=== PATIENT | male | born 1950 | race Caucasian/White ===

== ENCOUNTER 2020-08-18 08:08 | Emergency (ER) | payer MEDICARE, BC, OTHER ==
[~2020-08-18] VITALS: Ht 170.2 cm; Wt 116.3 kg
[2020-08-18 08:10] VITALS: BP 151/80
[2020-08-18 08:36] LABS: BASO # 0.1 x10^3/uL (0.0-0.2); BASO % 1 % (0-3); EOS # 0.2 x10^3/uL (0.0-0.7); EOS % 3 % (0-3); HEMATOCRIT 41.2 % (39.0-53.0); HEMOGLOBIN 13.5 g/dL (13.0-17.5); LYMPH # 1.4 x10^3/uL (1.0-4.8); LYMPH % 20 % (24-48); MEAN CORPUSCULAR HEMOGLOBIN 28 pg (25-35); MEAN CORPUSCULAR HGB CONC 33 g/dL (31-37); MEAN CORPUSCULAR VOLUME 87 fL (79-100); MONO # 0.5 x10^3/uL (0.0-1.1); MONO % 8 % (0-9); NEUT # 4.9 x10^3uL (1.8-7.7); NEUT % 68 % (31-73); PLATELET COUNT 108 x10^3/uL (140-400); RED BLOOD COUNT 4.74 x10^6/uL (4.30-5.70); RED CELL DISTRIBUTION WIDTH 15.8 % (11.5-14.5); WHITE BLOOD COUNT 7.1 x10^3/uL (4.0-11.0)
[2020-08-18 08:44] LABS: CALCIUM 9.4 mg/dL (8.5-10.1); CREATININE 1.1 mg/dL (0.7-1.3)
[2020-08-18 08:50] LABS: ALBUMIN 3.6 g/dL (3.4-5.0); ALBUMIN/GLOBULIN RATIO 0.8 (1.0-1.7); TOTAL BILIRUBIN 0.3 mg/dL (0.2-1.0); TOTAL PROTEIN 8.4 g/dL (6.4-8.2)
[2020-08-18 08:52] LABS: BACTERIA,URINE 0 /HPF (0-FEW); BILIRUBIN,URINE NEG (NEG); CLARITY,URINE CLEAR; COLOR,URINE YELLOW; GLUCOSE,URINE 500 mg/dL (NEG); NITRITE,URINE NEG (NEG); RBC,URINE OCC /HPF (0-2); SQUAMOUS EPITHELIAL CELL,UR OCC /LPF; UROBILINOGEN,URINE 0.2 mg/dL (0.2 mg/dL); WBC,URINE OCC /HPF (0-4)
--- NOTE | 2020-08-18 09:07 | PHYS DOC ---
Past History Past Medical History: Diabetes, Heart Disease, Other Additional Past Medical Histor: resp failure, encephalopathy,heart failure, mild cognitive impairment Past Surgical History: Other Additional Past Surgical Histo: amputation of great toe Alcohol Use: None Adult General Chief Complaint Chief Complaint: PSYCH EVALUATION HPI HPI Patient is 70-year-old male with past medical history of dementia who presents the emergency room with behavioral issues. It is unclear at this time what kind of issues he has been having. Patient has no complaints. He is a poor historian. He is very compliant here in the emergency room. Review of Systems Review of Systems General: Denies fever, chills, sweats, fatigue Eyes: Denies drainage, blurred vision, eye redness HENT: Denies rhinorrhea, sore throat, earache Respiratory: Denies cough, shortness of breath, wheezing Cardiac: Denies edema, palpitations, chest pain GI: Denies abdominal pain, Nausea, vomiting MSK: Denies back pain, neck pain Skin: Denies rash, jaundice Neuro: Denies headache, dizziness Psychiatric: Denies SI/HI Physical Exam Physical Exam General: Awake, alert, NAD. Well Nourished, well hydrated. Cooperative HEENT: Atraumatic, EOMI, PERRL, airway patent, moist oral mucosa Neck: Supple, trachea midline Respiratory: CTA bilaterally, normal effort, no wheezing/crackles CV: RRR, no murmur, cap refill <2, bilateral 1+ pitting edema GI: Soft, nondistended, nontender, no masses MSK: No obvious deformities Skin: Warm, dry, intact Neuro: A&O x2, speech NL, sensory and motor grossly intact, no focal deficits Psych: Normal affect, normal mood, not suicidal or homicidal Current Patient Data Vital Signs Vital Signs Date Time Temp Pulse Resp B/P (MAP) Pulse Ox O2 Delivery O2 Flow Rate FiO2 08/18/20 08:10 97.9 57 16 151/80 (103) 98 Room Air Lab Results Laboratory Tests Test 08/18/20 08:18 08/18/20 08:24 White Blood Count 7.1 x10^3/uL (4.0-11.0) Red Blood Count 4.74 x10^6/uL (4.30-5.70) Hemoglobin 13.5 g/dL (13.0-17.5) Hematocrit 41.2 % (39.0-53.0) Mean Corpuscular Volume 87 fL (79-100) Mean Corpuscular Hemoglobin 28 pg (25-35) Mean Corpuscular Hemoglobin Concent 33 g/dL (31-37) Red Cell Distribution Width 15.8 % (11.5-14.5) H Platelet Count 108 x10^3/uL (140-400) L Neutrophils (%) (Auto) 68 % (31-73) Lymphocytes (%) (Auto) 20 % (24-48) L Monocytes (%) (Auto) 8 % (0-9) Eosinophils (%) (Auto) 3 % (0-3) Basophils (%) (Auto) 1 % (0-3) Neutrophils # (Auto) 4.9 x10^3uL (1.8-7.7) Lymphocytes # (Auto) 1.4 x10^3/uL (1.0-4.8) Monocytes # (Auto) 0.5 x10^3/uL (0.0-1.1) Eosinophils # (Auto) 0.2 x10^3/uL (0.0-0.7) Basophils # (Auto) 0.1 x10^3/uL (0.0-0.2) Sodium Level 137 mmol/L (136-145) Potassium Level 4.0 mmol/L (3.5-5.1) Chloride Level 100 mmol/L (98-107) Carbon Dioxide Level 29 mmol/L (21-32) Anion Gap 8 (6-14) Blood Urea Nitrogen 14 mg/dL (8-26) Creatinine 1.1 mg/dL (0.7-1.3) Estimated GFR (Cockcroft-Gault) 66.0 BUN/Creatinine Ratio 13 (6-20) Glucose Level 312 mg/dL (70-99) H Calcium Level 9.4 mg/dL (8.5-10.1) Total Bilirubin 0.3 mg/dL (0.2-1.0) Aspartate Amino Transferase (AST) 14 U/L (15-37) L Alanine Aminotransferase (ALT) 17 U/L (16-63) Alkaline Phosphatase 101 U/L (46-116) Total Protein 8.4 g/dL (6.4-8.2) H Albumin 3.6 g/dL (3.4-5.0) Albumin/Globulin Ratio 0.8 (1.0-1.7) L Urine Collection Type Unknown Urine Color Yellow Urine Clarity Clear Urine pH 7.0 Urine Specific [place] 1.010 Urine Protein Neg (NEG-TRACE) Urine Glucose (UA) 500 mg/dL (NEG) Urine Ketones (Stick) Neg mg/dL (NEG) Urine Blood Neg (NEG) Urine Nitrite Neg (NEG) Urine Bilirubin Neg (NEG) Urine Urobilinogen Dipstick 0.2 mg/dL (0.2 mg/dL) Urine Leukocyte Esterase Neg (NEG) Urine RBC Occ /HPF (0-2) Urine WBC Occ /HPF (0-4) Urine Squamous Epithelial Cells Occ /LPF Urine Bacteria 0 /HPF (0-FEW) EKG EKG [] Radiology/Procedures Radiology/Procedures [] Course & Med Decision Making Course & Med Decision Making Pertinent Labs and Imaging studies reviewed. (See chart for details) Patient is a 70-year-old male who presents to the emergency room from a nursing facility for behavioral issues. Patient has not had any behavioral episodes while here in the emergency room. At this time he is medically stable. There is not an emergent need for a psychiatric evaluation. Patient will be discharged back to the nursing facility for proper placement patient's test results and vitals while in the ED were fully reviewed and discussed with the patient. Patient is stable and at this time does not need admission to the hospital. We have discussed strict return precautions and the importance of following up with their Primary Care Physician. Patient stated understanding and was given an opportunity to ask any questions. Patient is in agreement with plan. Dragon Disclaimer Dragon Disclaimer This electronic medical record was generated, in whole or in part, using a voice recognition dictation system. Departure Departure: Impression: Primary Impression: Dementia Disposition: HOME/RESIDENCE PRIOR TO ADM Condition: STABLE Referrals: PCP,UNKNOWN (PCP) Patient Instructions: Dementia ESTEBAN BLAIR MD Aug 18, 2020 09:07
== END 2020-08-18 11:48 | disposition home or self-care (01) ==
LOC: ER 08:08
DX: F03.90 Unspecified dementia, unspecified severity, without behavioral disturbance, psychotic disturbance, mood disturbance, and anxiety (principal); E11.9 Type 2 diabetes mellitus without complications; I50.9 Heart failure, unspecified
CPT/HCPCS: 36415; 80053; 81001; 85025; 99283

== ENCOUNTER 2020-08-21 10:12 | Inpatient (IN) | payer MEDICARE, BC, OTHER ==
[~2020-08-21] VITALS: Ht 180.3 cm; Wt 124.0 kg
[2020-08-21 10:41] VITALS: BP 191/98
[2020-08-21 11:05] LABS: BILIRUBIN,URINE NEG (NEG); CLARITY,URINE CLEAR; COLOR,URINE COLORLESS; GLUCOSE,URINE 100 mg/dL (NEG); NITRITE,URINE NEG (NEG); UROBILINOGEN,URINE 0.2 mg/dL (0.2 mg/dL)
[2020-08-21 11:06] LABS: BACTERIA,URINE 0 /HPF (0-FEW); RBC,URINE 0 /HPF (0-2); WBC,URINE 0 /HPF (0-4)
[2020-08-21] MEDS ORDERED: CARV6.25 PO (11:43)
[2020-08-21] MEDS ORDERED: FURO-68 PO (11:43)
[2020-08-21] MEDS ORDERED: LORA0.5T21 PO (11:43)
[2020-08-21] MEDS ORDERED: HALO5AMP2 IJ (11:43)
[2020-08-21] MEDS ORDERED: GABA-586 PO (11:43)
[2020-08-21] MEDS ORDERED: MAG355OR11 PO (11:43)
[2020-08-21] MEDS ORDERED: CYAN100031 PO (11:43)
[2020-08-21] MEDS ORDERED: INSU100I13 SQ (11:43)
[2020-08-21] MEDS ORDERED: ASPI-630 PO (11:43)
[2020-08-21] MEDS ORDERED: MUPI15CR8 TP (11:43)
[2020-08-21] MEDS ORDERED: PANT40TA3 PO (11:43)
[2020-08-21] MEDS ORDERED: PRAV40TA2 PO (11:43)
[2020-08-21] MEDS ORDERED: LOSA100T14 PO (11:43)
[2020-08-21] MEDS ORDERED: ACET325T9 PO (11:43)
[2020-08-21] MEDS ORDERED: INSU100I17 SQ (11:43)
[2020-08-21] MEDS ORDERED: ACETAMINOPHEN 325 MG TABLET PO PRN (12:00)
[2020-08-21] MEDS ORDERED: LORazepam 0.5 MG TABLET PO PRN (12:00)
--- NOTE | 2020-08-21 12:10 | HP ---
ADMIT DATE: 08/21/2020 HISTORY OF PRESENT ILLNESS: We are asked to admit this patient for COVID-19 screening prior to going to the [facility]. HISTORY OF PRESENT ILLNESS: The patient is a 70-year-old gentleman who hails from [facility] in [place]. Dr. Obrien had seen him there. He has gotten quite agitated. He is exit seeking, aggressive with staff, pushed a social services analyst out of the way agitated, delusional and restless. I wonder if there is some baseline developmental delay. In any event, he has multiple medical issues. He was sent here for further evaluation and COVID screening. PAST MEDICAL HISTORY: Significant for encephalopathy, type 2 diabetes, heart disease, obesity, cognitive impairment, dementia, hypertension, hyperlipidemia and profound peripheral edema. CURRENT MEDICATIONS: Reviewed. He takes insulin 3 shots of regular and a shot of Lantus at bedtime, pravastatin, Coreg, losartan 100 mg daily, aspirin, Tylenol, Neurontin, Haldol, lorazepam, Lasix 40 mg daily, magnesium hydroxide, vitamin B12, and Protonix. ALLERGIES: He has allergies to PENICILLIN, exact cause is unclear. SOCIAL HISTORY: Nonsmoker, nondrinker. FAMILY HISTORY: Unobtainable. REVIEW OF SYSTEMS: Significant for he drinks quite a bit of water, about a gallon a day, resulting in chronic pedal edema. He can barely put his shoes on. He has 4+ pitting edema. No fevers, chills, COVID exposure. All other systems reviewed and turned to be negative. He has an unfortunately very little insight into his condition. PHYSICAL EXAMINATION: GENERAL: When I saw him, this is a pleasant gentleman. INITIAL VITAL SIGNS: Showed a blood pressure of 191/98, pulse 95 and regular, temperature 98.4 degrees Fahrenheit. He was afebrile. Room air saturation 95%. HEENT: Head is without trauma. Pupils are reactive. Sclerae nonicteric. Oropharynx clear. NECK: Supple. LUNGS: Good breath sounds. CARDIOVASCULAR: Showed regular heart tones. No gallops. Peripheral pulses are palpable and full. ABDOMEN: Obese, protuberant. No organomegaly. Bowel sounds are normoactive. EXTREMITIES: Show 4+ pitting edema, extending all the way up to his thighs. The ankles are swollen. There is stasis dermatitis. NEUROLOGIC: Focally intact. Speech is fluent. No focal deficits. PERTINENT LABORATORY DATA: Urinalysis is unremarkable. CBC, chemistry panel and syphilis serology and coronavirus swab are pending at this time. ASSESSMENT: 1. A 70-year-old gentleman with dementia with aggressive behavior. 2. Borderline developmental delay. 3. Cardiomyopathy. 4. Type 2 diabetes. 5. Morbid obesity. 6. Significant pedal edema due to excess intake of fluids. PLAN: 1. Continue insulin regimen as ordered. 2. Continue blood pressure meds. 3. I would recommend increasing his Lasix to 80 mg twice a day. 4. Await results of serology. He can go to the Behavioral Unit when his COVID-19 tests are available. I would recommend daily weights and fluid restriction. Whether or not this is feasible, remains to be seen. DARLING WEINBERG MD DR: MITA/nadya JOB#: [id number] / [id number]
[2020-08-21] MEDS ORDERED: MAG HYDROX/AL HYDROX/SIMETH 30 ML ORAL.SUSP PO PRN (12:30)
[2020-08-21] MEDS ORDERED: MAGNESIUM HYDROXIDE 2,400 MG/30 ML ORAL.SUSP. PO PRN (13:30)
[2020-08-21] MEDS: INSULIN LISPRO 300 UNITS/3 ML VIAL. SQ SCH ×2 (13:30→17:00)
[2020-08-21] MEDS: GABAPENTIN 300 MG CAPSULE. PO SCH ×2 (13:42→19:55)
[2020-08-21] MEDS: FUROSEMIDE 40 MG TABLET PO SCH ×2 (13:42→19:55)
[2020-08-21] MEDS: LORazepam 0.5 MG TABLET PO SCH ×2 (13:42→19:54)
[2020-08-21 14:41] LABS: ALBUMIN 3.6 g/dL (3.4-5.0); ALBUMIN/GLOBULIN RATIO 0.8 (1.0-1.7); CALCIUM 9.7 mg/dL (8.5-10.1); CREATININE 1.2 mg/dL (0.7-1.3); DIRECT BILIRUBIN 0.1 mg/dL (0.0-0.2); GFR 59.7; MAGNESIUM 2.2 mg/dL (1.8-2.4); PHOSPHORUS 3.7 mg/dL (2.6-4.7); POTASSIUM 3.9 mmol/L (3.5-5.1); TOTAL BILIRUBIN 0.3 mg/dL (0.2-1.0); TOTAL PROTEIN 8.4 g/dL (6.4-8.2)
[2020-08-21 14:54] LABS: BASO # 0.1 x10^3/uL (0.0-0.2); BASO % 1 % (0-3); EOS # 0.2 x10^3/uL (0.0-0.7); EOS % 2 % (0-3); HEMATOCRIT 39.7 % (39.0-53.0); HEMOGLOBIN 13.1 g/dL (13.0-17.5); LYMPH # 1.5 x10^3/uL (1.0-4.8); LYMPH % 19 % (24-48); MEAN CORPUSCULAR HEMOGLOBIN 29 pg (25-35); MEAN CORPUSCULAR HGB CONC 33 g/dL (31-37); MEAN CORPUSCULAR VOLUME 87 fL (79-100); MONO # 0.3 x10^3/uL (0.0-1.1); MONO % 4 % (0-9); NEUT # 6.1 x10^3uL (1.8-7.7); NEUT % 74 % (31-73); PLATELET COUNT 120 x10^3/uL (140-400); RED BLOOD COUNT 4.58 x10^6/uL (4.30-5.70); RED CELL DISTRIBUTION WIDTH 15.2 % (11.5-14.5); WHITE BLOOD COUNT 8.2 x10^3/uL (4.0-11.0)
[2020-08-21] MEDS: CARVEDILOL 6.25 MG TABLET PO SCH (17:00)
[2020-08-21] MEDS: ATORVASTATIN CALCIUM 10 MG TABLET. PO SCH (19:55)
[2020-08-21] MEDS: INSULIN GLARGINE SYRINGE. SQ SCH (20:40)
[2020-08-21 21:49] VITALS: BP 153/65
--- NOTE | 2020-08-21 21:56 | PDOC ---
Exam Note: Mason Note: Please also refer to the separate dictated note~for this date of service dictated separately.~Patient seen individually. Discussed the patient with Nursing staff reviewed the chart.~Reviewed interim history and current functioning. Reviewed vital signs,~Labs/ Radiology~and current medications noted below. Continue current treatment with the changes noted in the dictated addendum note Assessment: Vital Signs/I&O: Vital Signs Date Time Temp Pulse Resp B/P (MAP) Pulse Ox O2 Delivery O2 Flow Rate FiO2 08/21/20 21:49 98.1 82 22 153/65 (94) 94 08/21/20 10:41 Room Air Labs: Laboratory Tests Test 08/21/20 10:45 08/21/20 13:57 08/21/20 17:16 08/21/20 18:53 Urine Collection Type Unknown Urine Color Colorless Urine Clarity Clear Urine pH 6.5 Urine Specific [place] 1.010 Urine Protein Neg (NEG-TRACE) Urine Glucose (UA) 100 mg/dL (NEG) Urine Ketones (Stick) Neg mg/dL (NEG) Urine Blood Neg (NEG) Urine Nitrite Neg (NEG) Urine Bilirubin Neg (NEG) Urine Urobilinogen Dipstick 0.2 mg/dL (0.2 mg/dL) Urine Leukocyte Esterase Neg (NEG) Urine RBC 0 /HPF (0-2) Urine WBC 0 /HPF (0-4) Urine Squamous Epithelial Cells None /LPF Urine Bacteria 0 /HPF (0-FEW) White Blood Count 8.2 x10^3/uL (4.0-11.0) Red Blood Count 4.58 x10^6/uL (4.30-5.70) Hemoglobin 13.1 g/dL (13.0-17.5) Hematocrit 39.7 % (39.0-53.0) Mean Corpuscular Volume 87 fL (79-100) Mean Corpuscular Hemoglobin 29 pg (25-35) Mean Corpuscular Hemoglobin Concent 33 g/dL (31-37) Red Cell Distribution Width 15.2 % (11.5-14.5) H Platelet Count 120 x10^3/uL (140-400) L Neutrophils (%) (Auto) 74 % (31-73) H Lymphocytes (%) (Auto) 19 % (24-48) L Monocytes (%) (Auto) 4 % (0-9) Eosinophils (%) (Auto) 2 % (0-3) Basophils (%) (Auto) 1 % (0-3) Neutrophils # (Auto) 6.1 x10^3uL (1.8-7.7) Lymphocytes # (Auto) 1.5 x10^3/uL (1.0-4.8) Monocytes # (Auto) 0.3 x10^3/uL (0.0-1.1) Eosinophils # (Auto) 0.2 x10^3/uL (0.0-0.7) Basophils # (Auto) 0.1 x10^3/uL (0.0-0.2) Sodium Level 136 mmol/L (136-145) Potassium Level 3.9 mmol/L (3.5-5.1) Chloride Level 100 mmol/L (98-107) Carbon Dioxide Level 25 mmol/L (21-32) Anion Gap 11 (6-14) Blood Urea Nitrogen 14 mg/dL (8-26) Creatinine 1.2 mg/dL (0.7-1.3) Estimated GFR (Cockcroft-Gault) 59.7 BUN/Creatinine Ratio 12 (6-20) Glucose Level 237 mg/dL (70-99) H Calcium Level 9.7 mg/dL (8.5-10.1) Phosphorus Level 3.7 mg/dL (2.6-4.7) Magnesium Level 2.2 mg/dL (1.8-2.4) Total Bilirubin 0.3 mg/dL (0.2-1.0) Direct Bilirubin 0.1 mg/dL (0.0-0.2) Aspartate Amino Transferase (AST) 14 U/L (15-37) L Alanine Aminotransferase (ALT) 19 U/L (16-63) Alkaline Phosphatase 105 U/L (46-116) Total Protein 8.4 g/dL (6.4-8.2) H Albumin 3.6 g/dL (3.4-5.0) Albumin/Globulin Ratio 0.8 (1.0-1.7) L Glucose (Fingerstick) 257 mg/dL (70-99) H 217 mg/dL (70-99) H Current Medications: Meds: Current Medications Medications (Trade) Dose Ordered Sig/Darren Route PRN Reason Start Time Stop Time Status Last Admin Dose Admin Carvedilol (Coreg) 6.25 mg BIDWMEALS PO 08/21/20 17:00 08/21/20 17:00 Gabapentin (Neurontin) 300 mg TID PO 08/21/20 14:00 08/21/20 19:55 Insulin Human Lispro (HumaLOG) 25 units TIDWMEALS SQ 08/21/20 13:30 08/21/20 17:00 Insulin Glargine (Lantus Syringe) 40 unit BID SQ 08/21/20 21:00 08/21/20 20:40 Atorvastatin Calcium (Lipitor) 10 mg QHS PO 08/21/20 21:00 08/21/20 19:55 Furosemide (Lasix) 80 mg BID PO 08/21/20 12:30 08/21/20 13:42 Lorazepam (Ativan) 0.5 mg TID PO 08/21/20 14:00 08/21/20 19:54 I have reviewed the current psychotropics carefully including drug interactions. Risk benefit ratio favors no change other than as noted in my dictated progress note. Diagnosis: Problems: (1) Anxiety disorder, unspecified NURIA BARRETT MD Aug 21, 2020 21:56
[2020-08-21] MEDS ORDERED: traZODone 50 MG TABLET. PO PRN (23:00)
[2020-08-22 03:07] LABS: HEMOGLOBIN A1C 9.3 % (4.8-5.6)
--- NOTE | 2020-08-22 04:04 | CONS ---
DATE OF CONSULTATION: 08/21/2020 PSYCHIATRIC CONSULTATION This note covers elements not covered in my initial note of 08/21/2020. IDENTIFYING DATA: The patient is a 70-year-old male referred to us from [facility], referred by his primary care physician on account of worsening confusion within the context of his diagnosis of major neurocognitive disorder vascular, Alzheimer's with delusion, depression. He was exit seeking, aggressive with redirection, pushing staff, restless, delusional and paranoid. He had failed outpatient psychiatric interventions. Behaviors were deemed dangerous, unmanageable resulting in this referral. CHIEF COMPLAINT: "I don't know when I came here. Maybe yesterday." The patient was in fact admitted today and was looking to the nursing staff for corroborating when he was admitted. Short term memory is impaired. HISTORY OF PRESENT ILLNESS: The patient has a history of short-term memory deficits, anxiety, irritability, marked paranoia and aggression as noted above. He has had sleep and appetite changes. No clear history of bipolar disorder, suicidal or homicidal ideation. PAST PSYCHIATRIC HISTORY: As above. ALLERGIES: PENICILLIN. MEDICAL HISTORY: History of acute respiratory failure, history of sepsis, history of encephalopathy. DIET: Diabetic, takes medications whole. ACTIVITIES: Ambulates up ad karissa. ALLERGIES: PENICILLIN. CODE STATUS: Full code. CURRENT PSYCHOTROPICS: Neurontin 300 mg 3 times a day, Ativan 0.5 mg t.i.d., Haldol p.r.n. FAMILY HISTORY: Noncontributory. SOCIAL HISTORY: No history of alcohol, drug abuse, physical, sexual or elder abuse. He is not known to be a perpetrator. The patient states he used to work at [employer]. No alcohol or drug abuse history. MENTAL STATUS EXAMINATION: The patient was seen individually evening of 08/21/2020 on telehealth rounds. He is oriented to himself. Insight, judgment, recent and remote memory, attention, concentration, fund of knowledge poor, consistent with his diagnosis. When questioned directly, the patient knew the year was 2019, knew the president was President Miki, but believed the president before President Trasif was President Nash. He talked about working at [employer] and the jobs he did and remote memory seems better than recent. LABORATORY DATA: Reviewed. IMPRESSION: Major neurocognitive disorder, probably vascular with delusion, depression, behavioral disturbance; anxiety disorder, unspecified; impulse control disorder, unspecified. Rest as above. RECOMMENDATION: From a psychiatric standpoint, I would continue the patient on his current psychotropics, observe baseline and adjust further as clinically indicated. Once his COVID repeat screen is negative, we will transition to the [facility]. MAN Sapphire BARRETT MD DR: ALLY/nadya JOB#: [id number] / [id number]
[2020-08-22 06:22] LABS: CALCIUM 9.4 mg/dL (8.5-10.1); CREATININE 1.2 mg/dL (0.7-1.3); GFR 59.7; POTASSIUM 3.5 mmol/L (3.5-5.1)
[2020-08-22 06:31] VITALS: BP 131/76
[2020-08-22] MEDS: GABAPENTIN 300 MG CAPSULE. PO SCH ×3 (08:56→20:27)
[2020-08-22] MEDS: CYANOCOBALAMIN (VITAMIN B-12) 1,000 MCG TABLET. PO SCH (08:56)
[2020-08-22] MEDS: FUROSEMIDE 40 MG TABLET PO SCH ×2 (08:57→13:52)
[2020-08-22] MEDS: ASPIRIN CHEWABLE 81 MG TABLET. PO SCH (08:57)
[2020-08-22] MEDS: LORazepam 0.5 MG TABLET PO SCH ×3 (08:57→20:27)
[2020-08-22] MEDS: CARVEDILOL 6.25 MG TABLET PO SCH ×2 (08:57→16:41)
[2020-08-22] MEDS: PANTOPRAZOLE 40 MG TABLET. PO SCH (08:57)
[2020-08-22] MEDS: LOSARTAN 50 MG TABLET. PO SCH (08:58)
[2020-08-22] MEDS: MUPIROCIN 2% TOPICAL OINTMENT 22GM TUBE. TP SCH (08:58)
[2020-08-22] MEDS: INSULIN GLARGINE SYRINGE. SQ SCH ×2 (09:00→21:38)
[2020-08-22] MEDS ORDERED: FUROSEMIDE 40 MG TABLET PO SCH (09:00)
[2020-08-22] MEDS ORDERED: FLU VACC QS 2020-21(6MOS+)/PF 0.5 ML SYRINGE. VAX IM ONE (09:00)
[2020-08-22] MEDS: INSULIN LISPRO 300 UNITS/3 ML VIAL. SQ SCH ×3 (09:02→16:43)
[2020-08-22 15:26] LABS: THYROID STIM HORMONE (TSH) 1.638 uIU/mL (0.358-3.740)
[2020-08-22 16:08] VITALS: BP 131/67
--- NOTE | 2020-08-22 19:23 | RAD ---
CHEST PA LATERAL History: Increasing cough with phlegm Comparison: August 13, 2020 Findings: 2 views of the chest are submitted. There is some motion degradation. There is some mild increased airspace opacity at the lung bases bilaterally as seen on the PA view. There is no significant dependent pleural fluid or pneumothorax. Heart size is similar. Impression: 1. There is some patchy bibasilar airspace opacity which may be infiltrate. Electronically signed by: Bradley Tay MD (08/22/2020 7:19 PM) [facility]
[2020-08-22] MEDS: ATORVASTATIN CALCIUM 10 MG TABLET. PO SCH (20:27)
--- NOTE | 2020-08-22 21:53 | PDOC ---
Exam Note: Mason Note: Please also refer to the separate dictated note~for this date of service dictated separately.~Patient seen individually. Discussed the patient with Nursing staff reviewed the chart.~Reviewed interim history and current functioning. Reviewed vital signs,~Labs/ Radiology~and current medications noted below. Continue current treatment with the changes noted in the dictated addendum note Assessment: Vital Signs/I&O: Vital Signs Date Time Temp Pulse Resp B/P (MAP) Pulse Ox O2 Delivery O2 Flow Rate FiO2 08/22/20 21:00 Room Air 08/22/20 16:41 72 131/67 08/22/20 16:08 98.4 18 92 I & O 08/21/20 08/21/20 08/22/20 15:00 23:00 07:00 Intake Total 360 ml 600 ml Balance 360 ml 600 ml Labs: Laboratory Tests Test 08/22/20 05:53 08/22/20 07:54 08/22/20 11:59 08/22/20 16:39 Sodium Level 140 mmol/L (136-145) Potassium Level 3.5 mmol/L (3.5-5.1) Chloride Level 101 mmol/L (98-107) Carbon Dioxide Level 29 mmol/L (21-32) Anion Gap 10 (6-14) Blood Urea Nitrogen 19 mg/dL (8-26) Creatinine 1.2 mg/dL (0.7-1.3) Estimated GFR (Cockcroft-Gault) 59.7 Glucose Level 160 mg/dL (70-99) H Calcium Level 9.4 mg/dL (8.5-10.1) Glucose (Fingerstick) 161 mg/dL (70-99) H 172 mg/dL (70-99) H 181 mg/dL (70-99) H Test 08/22/20 19:06 Glucose (Fingerstick) 184 mg/dL (70-99) H Current Medications: Meds: Current Medications Medications (Trade) Dose Ordered Sig/Darren Route PRN Reason Start Time Stop Time Status Last Admin Dose Admin Aspirin (Aspirin Chewable) 81 mg DAILY PO 08/22/20 09:00 08/22/20 08:57 Pantoprazole Sodium (Protonix) 40 mg DAILY PO 08/22/20 09:00 08/22/20 08:57 Cyanocobalamin (Vitamin B-12) 1,000 mcg DAILY PO 08/22/20 09:00 08/22/20 08:56 Losartan Potassium (Cozaar) 100 mg DAILY PO 08/22/20 09:00 08/22/20 08:58 Mupirocin (Bactroban) 1 chet DAILY TP 08/22/20 09:00 08/22/20 08:58 Influenza Virus Vaccine Quadrival (Fluzone Quad Syringe) 0.5 ml ONCE ONCE VAX IM 08/22/20 09:00 08/22/20 09:01 DC 08/22/20 09:00 Trazodone HCl (Desyrel) 50 mg PRN QHS PRN PO INSOMNIA, MAY REPEAT X1 08/21/20 23:00 08/21/20 23:12 Olanzapine (ZyPREXA ZYDIS) 2.5 mg PRN Q2HRS PRN PO PSYCHOSIS 08/21/20 23:00 08/21/20 23:12 Furosemide (Lasix) 80 mg BID92 PO 08/22/20 09:00 08/22/20 13:52 Lorazepam (Ativan) 0.5 mg BID PO 08/22/20 21:00 08/22/20 20:27 I have reviewed the current psychotropics carefully including drug interactions. Risk benefit ratio favors no change other than as noted in my dictated progress note. Diagnosis: Problems: (1) Major neurocognitive disorder, due to vascular disease, with behavioral dist urbance, mild (2) Dementia, vascular, with depression (3) Dementia, vascular, with delusions (4) Impulse control disorder, unspecified (5) Anxiety disorder, unspecified NURIA BARRETT MD Aug 22, 2020 21:53
[2020-08-23 06:19] VITALS: BP 152/81
--- NOTE | 2020-08-23 07:46 | PDOC ---
Exam Note: Mason Note: This note is a late entry for 08/22/2020 covers elements not covered in my initial note. Subjective: The patient was reviewed on telehealth rounds in the evening of 08/22/2020 with Mikey DO. Discussed with nursing staff, reviewed the chart. I was called around 11 p.m. last night by Laura DO. The patient was anxious, agitated, confused, trying to walk off the unit, had to be redirected, very difficult, not sleeping. We did start Zyprexa 2.5 mg q.2h. p.r.n. psychosis, agitation max 10 mg in 24 hours and trazodone 50 mg h.s. p.r.n. may repeat x1 for insomnia. He had done little better today, was agitated in the morning, redirected, specifically with Filiberto the nursing aid. Around 4 p.m. he was complaining of not feeling well and tired. Vital signs are stable. Glucose 181. Review of Systems: Positive for tiredness. No CV, , pulmonary, eye system symptoms on review. Mental Status Exam: Oriented to himself. Insight and judgment, recent and remote memory, attention and concentration, fund of knowledge is poor consistent with his diagnoses. No suicidal or homicidal ideation. Laboratory Data: Reviewed. Impression: Major neurocognitive disorder Alzheimer, vascular with delusion, depression, behavioral disturbance. Anxiety disorder unspecified. Impulse control disorder unspecified. Plan: Start Zoloft 25 mg a day for 3 days, then 50 mg a day thereafter. Reduce the Ativan from 0.5 mg t.i.d. down to 0.5 mg b.i.d. since it is probably causing paradoxical disinhibition. Continue trazodone and Zyprexa p.r.n. Rest unchanged for now. Assessment: Vital Signs/I&O: Vital Signs Date Time Temp Pulse Resp B/P (MAP) Pulse Ox O2 Delivery O2 Flow Rate FiO2 08/23/20 06:19 98.1 64 16 152/81 (104) 94 08/22/20 21:00 Room Air I & O0 08/22/20 08/22/20 08/23/20 15:00 23:00 07:00 Intake Total 1080 ml 480 ml Balance 1080 ml 480 ml Labs: Laboratory Tests Test 08/22/20 07:54 08/22/20 11:59 10/7/20 16:39 08/22/20 19:06 Glucose (Fingerstick) 161 mg/dL (70-99) H 172 mg/dL (70-99) H 181 mg/dL (70-99) H 184 mg/dL (70-99) H Current Medications: Meds: Current Medications Medications (Trade) Dose Ordered Sig/Darren Route PRN Reason Start Time Stop Time Status Last Admin Dose Admin Aspirin (Aspirin Chewable) 81 mg DAILY PO 08/22/20 09:00 08/22/20 08:57 Pantoprazole Sodium (Protonix) 40 mg DAILY PO 08/22/20 09:00 08/22/20 08:57 Cyanocobalamin (Vitamin B-12) 1,000 mcg DAILY PO 08/22/20 09:00 08/22/20 08:56 Losartan Potassium (Cozaar) 100 mg DAILY PO 08/22/20 09:00 08/22/20 08:58 Mupirocin (Bactroban) 1 chet DAILY TP 08/22/20 09:00 08/22/20 08:58 Influenza Virus Vaccine Quadrival (Fluzone Quad Syringe) 0.5 ml ONCE ONCE VAX IM 08/22/20 09:00 08/22/20 09:01 DC 08/22/20 09:00 Furosemide (Lasix) 80 mg BID92 PO 08/22/20 09:00 08/22/20 13:52 Lorazepam (Ativan) 0.5 mg BID PO 08/22/20 21:00 08/22/20 20:27 I have reviewed the current psychotropics carefully including drug interactions. Risk benefit ratio favors no change other than as noted in my dictated progress note. Diagnosis: Problems: (1) Anxiety disorder, unspecified (2) Impulse control disorder, unspecified (3) Dementia, vascular, with depression (4) Dementia, vascular, with delusions (5) Major neurocognitive disorder, due to vascular disease, with behavioral disturbance, mild ARNOLD,NURIA Hubbard MD Aug 23, 2020 07:46
[2020-08-23 07:49] LABS: CALCIUM 9.1 mg/dL (8.5-10.1); CREATININE 1.2 mg/dL (0.7-1.3); GFR 59.7; POTASSIUM 3.9 mmol/L (3.5-5.1)
[2020-08-23] MEDS: ASPIRIN CHEWABLE 81 MG TABLET. PO SCH (09:01)
[2020-08-23] MEDS: FUROSEMIDE 40 MG TABLET PO SCH ×2 (09:01→12:43)
[2020-08-23] MEDS: GABAPENTIN 300 MG CAPSULE. PO SCH ×3 (09:01→20:54)
[2020-08-23] MEDS: PANTOPRAZOLE 40 MG TABLET. PO SCH (09:02)
[2020-08-23] MEDS: CARVEDILOL 6.25 MG TABLET PO SCH ×2 (09:02→18:23)
[2020-08-23] MEDS: LOSARTAN 50 MG TABLET. PO SCH (09:02)
[2020-08-23] MEDS: CYANOCOBALAMIN (VITAMIN B-12) 1,000 MCG TABLET. PO SCH (09:02)
[2020-08-23] MEDS: MUPIROCIN 2% TOPICAL OINTMENT 22GM TUBE. TP SCH (09:03)
[2020-08-23] MEDS: LORazepam 0.5 MG TABLET PO SCH ×2 (09:06→20:50)
[2020-08-23] MEDS: SERTRALINE 25 MG TABLET. PO SCH (09:06)
[2020-08-23] MEDS: INSULIN LISPRO 300 UNITS/3 ML VIAL. SQ SCH ×3 (09:12→18:14)
[2020-08-23] MEDS: INSULIN GLARGINE SYRINGE. SQ SCH ×2 (09:13→20:57)
[2020-08-23 17:56] VITALS: BP 128/79
[2020-08-23] MEDS: ATORVASTATIN CALCIUM 10 MG TABLET. PO SCH (20:50)
[2020-08-23 21:25] VITALS: BP 144/72
--- NOTE | 2020-08-23 22:03 | PDOC ---
Exam Note: Masno Note: Please also refer to the separate dictated note~for this date of service dictated separately.~Patient seen individually. Discussed the patient with Nursing staff reviewed the chart.~Reviewed interim history and current functioning. Reviewed vital signs,~Labs/ Radiology~and current medications noted below. Continue current treatment with the changes noted in the dictated addendum note Assessment: Vital Signs/I&O: Vital Signs Date Time Temp Pulse Resp B/P (MAP) Pulse Ox O2 Delivery O2 Flow Rate FiO2 08/23/20 21:25 98.0 75 16 144/72 (96) 93 08/23/20 17:56 Room Air I & O 08/22/20 08/22/20 08/23/20 15:00 23:00 07:00 Intake Total 1080 ml 480 ml Balance 1080 ml 480 ml Labs: Laboratory Tests Test 08/23/20 06:57 08/23/20 07:43 08/23/20 12:07 08/23/20 17:04 Sodium Level 140 mmol/L (136-145) Potassium Level 3.9 mmol/L (3.5-5.1) Chloride Level 104 mmol/L (98-107) Carbon Dioxide Level 27 mmol/L (21-32) Anion Gap 9 (6-14) Blood Urea Nitrogen 22 mg/dL (8-26) Creatinine 1.2 mg/dL (0.7-1.3) Estimated GFR (Cockcroft-Gault) 59.7 Glucose Level 161 mg/dL (70-99) H Calcium Level 9.1 mg/dL (8.5-10.1) Glucose (Fingerstick) 146 mg/dL (70-99) H 223 mg/dL (70-99) H 141 mg/dL (70-99) H Test 08/23/20 20:25 Glucose (Fingerstick) 208 mg/dL (70-99) H Current Medications: Meds: Current Medications Medications (Trade) Dose Ordered Sig/Darren Route PRN Reason Start Time Stop Time Status Last Admin Dose Admin Sertraline HCl (Zoloft) 25 mg DAILY PO 08/23/20 09:00 08/25/20 23:50 08/23/20 09:06 I have reviewed the current psychotropics carefully including drug interactions. Risk benefit ratio favors no change other than as noted in my dictated progress note. Diagnosis: Problems: (1) Anxiety disorder, unspecified (2) Impulse control disorder, unspecified (3) Dementia, vascular, with depression (4) Dementia, vascular, with delusions (5) Major neurocognitive disorder, due to vascular disease, with behavioral disturbance, mild NURIA BARRETT MD Aug 23, 2020 22:03
[2020-08-24 05:43] VITALS: BP 152/74
[2020-08-24] MEDS: ASPIRIN CHEWABLE 81 MG TABLET. PO SCH (08:04)
[2020-08-24] MEDS: GABAPENTIN 300 MG CAPSULE. PO SCH (08:04)
[2020-08-24] MEDS: CYANOCOBALAMIN (VITAMIN B-12) 1,000 MCG TABLET. PO SCH (08:04)
[2020-08-24] MEDS: PANTOPRAZOLE 40 MG TABLET. PO SCH (08:04)
[2020-08-24] MEDS: LORazepam 0.5 MG TABLET PO SCH (08:04)
[2020-08-24] MEDS: CARVEDILOL 6.25 MG TABLET PO SCH (08:05)
[2020-08-24] MEDS: SERTRALINE 25 MG TABLET. PO SCH (08:05)
[2020-08-24] MEDS: LOSARTAN 50 MG TABLET. PO SCH (08:05)
[2020-08-24] MEDS: FUROSEMIDE 40 MG TABLET PO SCH (08:05)
[2020-08-24] MEDS: MUPIROCIN 2% TOPICAL OINTMENT 22GM TUBE. TP SCH (08:06)
[2020-08-24] MEDS ORDERED: ATOR10TA60 PO (08:47)
[2020-08-24] MEDS ORDERED: INSU100V SQ (08:49)
[2020-08-24] MEDS ORDERED: MAGN24003 PO (08:50)
[2020-08-24] MEDS ORDERED: OLAN5TAB99 PO (08:52)
[2020-08-24] MEDS ORDERED: SERT25TA PO (08:55)
[2020-08-24] MEDS ORDERED: SERT50TA PO (08:57)
[2020-08-24] MEDS: INSULIN GLARGINE SYRINGE. SQ SCH (09:00)
[2020-08-24] MEDS ORDERED: TRAZ-120 PO (09:00)
[2020-08-24] MEDS: INSULIN LISPRO 300 UNITS/3 ML VIAL. SQ SCH (09:48)
[2020-08-24 10:00] VITALS: BP 131/75
--- NOTE | 2020-08-25 07:13 | PDOC ---
Exam Note: Mason Note: This note is a late entry for 08/23/2020 covers elements not covered in my initial note. Subjective: The patient was reviewed on telehealth rounds in the evening of 08/23/2020 with Ysabel DO. Discussed with nursing staff, reviewed the chart. He remains confused, forgetful, trying to leave the unit. Nursing staff had called me several times. He got agitated slamming the door, refused medications, wanting to talk to his girlfriend. Review of Systems: No CV, , pulmonary, eye system symptoms on review. Mental Status Exam: Oriented to himself. Insight and judgment, recent and remote memory, attention and concentration, fund of knowledge is poor consistent with his diagnoses. Laboratory Data: Reviewed. Impression: Major neurocognitive disorder Alzheimer, vascular with delusion, depression, behavioral disturbance. Anxiety disorder unspecified. Impulse control disorder unspecified. Plan: No change from initial note. We will transition [facility] once COVID screen is negative. Assessment: Vital Signs/I&O: Vital Signs Date Time Temp Pulse Resp B/P (MAP) Pulse Ox O2 Delivery O2 Flow Rate FiO2 08/24/20 10:00 97.2 68 18 131/75 (93) 95 Room Air I & O 08/24/20 08/24/20 08/25/20 15:00 23:00 07:00 Intake Total 360 ml Balance 360 ml Labs: Laboratory Tests Test 08/24/20 09:42 08/24/20 12:11 Glucose (Fingerstick) 219 mg/dL (70-99) H 137 mg/dL (70-99) H Current Medications: I have reviewed the current psychotropics carefully including drug interactions. Risk benefit ratio favors no change other than as noted in my dictated progress note. Diagnosis: Problems: (1) Impulse control disorder, unspecified (2) Anxiety disorder, unspecified (3) Dementia, vascular, with depression (4) Dementia, vascular, with delusions (5) Major neurocognitive disorder, due to vascular disease, with behavioral disturbance, mild (6) Dementia in Alzheimer's disease with depression (7) Dementia in Alzheimer's disease with delusions NURIA BARRETT MD Aug 25, 2020 07:13
[2020-08-26] MEDS ORDERED: SERTRALINE 50 MG TABLET. PO SCH (09:00)
== END 2020-08-24 10:20 | DRG 948 ==
LOC: LND 10:12
PROVIDERS: ADMIT Internal Medicine; ATTEND Internal Medicine
DX: R41.82 Altered mental status, unspecified (principal); I42.9 Cardiomyopathy, unspecified; F63.9 Impulse disorder, unspecified; R62.50 Unspecified lack of expected normal physiological development in childhood; E66.01 Morbid (severe) obesity due to excess calories; Z68.38 Body mass index [BMI] 38.0-38.9, adult; Z88.0 Allergy status to penicillin; Z88.8 Allergy status to other drugs, medicaments and biological substances; Z20.828 Contact with and (suspected) exposure to other viral communicable diseases; F41.9 Anxiety disorder, unspecified; G30.9 Alzheimer's disease, unspecified; F02.80 Dementia in other diseases classified elsewhere, unspecified severity, without behavioral disturbance, psychotic disturbance, mood disturbance, and anxiety; E78.5 Hyperlipidemia, unspecified
CPT/HCPCS: 36415; 71046; 80048; 80053; 80061; 80076; 81001; 82306; 82607; 82947; 83036; 83540; 83550; 83735; 84100; 84443; 84480; 84481; 85025; 90471; J1815; 90686; U0003-CS

== ENCOUNTER 2020-08-24 10:33 | Inpatient (IN) | payer MEDICARE, BC, OTHER ==
[~2020-08-24] VITALS: Ht 180.3 cm; Wt 120.8 kg
[~2020-08-24 10:33] MED LIST: ACET325T9 PO; ASPI-630 PO; ATOR10TA60 PO; CARV6.25 PO; CYAN100031 PO; FURO-68 PO; GABA-586 PO; HALO5AMP2 IJ; INSU100I13 SQ; INSU100I17 SQ; INSU100V SQ; LORA0.5T21 PO; LOSA100T14 PO; MAG355OR11 PO; MAGN24003 PO; MUPI15CR8 TP; OLAN5TAB99 PO; PANT40TA3 PO; PRAV40TA2 PO; SERT25TA PO; SERT50TA PO; TRAZ-120 PO
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
[2020-08-24 11:01] VITALS: BP 156/72
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
[2020-08-24] MEDS ORDERED: MAG HYDROX/AL HYDROX/SIMETH 30 ML ORAL.SUSP PO PRN (12:00)
[2020-08-24] MEDS ORDERED: MAGNESIUM HYDROXIDE 2,400 MG/30 ML ORAL.SUSP. PO PRN ×2 (12:00→12:30)
[2020-08-24] MEDS ORDERED: METHYL SALICYLATE/MENTHOL TOPICAL OINTMENT 57GM TUBE. TP PRN (12:00)
[2020-08-24] MEDS ORDERED: ACETAMINOPHEN 325 MG TABLET PO PRN (12:15)
[2020-08-24] MEDS ORDERED: NON FORMULARY ITEM (Mag Hydrox/Aluminum Hyd/Simeth (Maalox Advanced Suspension) 15 ML) PO PRN (12:15)
[2020-08-24] MEDS: GABAPENTIN 300 MG CAPSULE. PO SCH ×2 (13:13→21:24)
[2020-08-24] MEDS: FUROSEMIDE 40 MG TABLET PO SCH (13:14)
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
[2020-08-24 15:29] VITALS: BP 172/80
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
--- NOTE | 2020-08-24 15:36 | NUR ---
NILE left voice message for Dakota Moralez, legal guardian, to invite to participate in team meeting on 08/26/20. Awaiting return phone call.
[2020-08-24 17:02] LABS: CALCIUM 9.7 mg/dL (8.5-10.1); CREATININE 1.2 mg/dL (0.7-1.3); GFR 59.7; POTASSIUM 3.7 mmol/L (3.5-5.1)
[2020-08-24] MEDS: CARVEDILOL 6.25 MG TABLET PO SCH (17:38)
[2020-08-24] MEDS: INSULIN LISPRO 300 UNITS/3 ML VIAL. SQ SCH (17:51)
--- NOTE | 2020-08-24 20:59 | NUR ---
Pt. requested to use phone to call girlfriend "christiane", phone number is written on a piece of paper in pt. possession. After pt. spoke with dr. orourke via zoom call, pt. stated " i am trying to get my girlfriend to get me a phone" I informed the pt. that we did not allow cell phones on the unit as a general policy but we would make the cordless phones available when possible. Pt. raised voice and stated " I will be leaving here". I informed pt. that he should finish the program that the physician was speaking with him about to finish adjusting his medications. Pt stated " thats all he said, he didn't say what he was doing just that he was changing my medications". I told pt. that next time he speaks with the physician to ask him specific questions and he would be happy to discuss it in more detail. Pt. was satisfied with that response at this time. Pt. continued speaking about "getting out of here", pt said "I will not [facility] the [facility], i have a home, I am going home". I told pt. to speak with the social workers when they are here, that they have a lot of experience helping pts. find placement upon discharge. Pt stated " I have somewhere to go, i'm going home". I reiterated to pt. that regardless if he went home or to another facility, that if he did not want to return to the facility from which he came that he should speak with the social workers so that they could assist him with that. Pt stated " I have not seen a social worker health services, when will they be here?". I responded to the pt that they likely saw him while he was downstairs but I couldn't be certain, and that they would be here during the day time and that they would meet with him and discuss this concern. Pt stated "well i didn't know who they were if they did see me, if they didn't tell me they were a social worker health services I wouldn't have discussed my problems with them". I explained to the pt. that every staff member he comes into contact with should introduce themselves, if they don't that he should ask them what their role is. Pt. was satisfied with this response at this time. pt. has been compliant with requests and when he began to raise his voice he complied with my request to lower it. Will continue to monitor pt. and encourage him to discuss his concerns when applicable.
[2020-08-24] MEDS: LORazepam 0.5 MG TABLET PO SCH (21:24)
[2020-08-24] MEDS: ATORVASTATIN CALCIUM 10 MG TABLET. PO SCH (21:24)
[2020-08-24] MEDS: INSULIN GLARGINE SYRINGE. SQ SCH (21:29)
--- NOTE | 2020-08-24 21:58 | PDOC ---
Exam Note: Mason Note: Please also refer to the separate dictated note~for this date of service dictated separately.~Patient seen individually. Discussed the patient with Nursing staff reviewed the chart.~Reviewed interim history and current functioning. Reviewed vital signs,~Labs/ Radiology~and current medications noted below. Continue current treatment with the changes noted in the dictated addendum note Assessment: Vital Signs/I&O: Vital Signs Date Time Temp Pulse Resp B/P (MAP) Pulse Ox O2 Delivery O2 Flow Rate FiO2 08/24/20 17:38 80 172/80 08/24/20 15:29 97.8 22 08/24/20 11:01 98 Room Air Labs: Laboratory Tests Test 08/24/20 16:45 08/24/20 17:16 08/24/20 19:39 D-Dimer (Adele) 1.13 mg/L (0.00-0.50) H Sodium Level 138 mmol/L (136-145) Potassium Level 3.7 mmol/L (3.5-5.1) Chloride Level 101 mmol/L (98-107) Carbon Dioxide Level 27 mmol/L (21-32) Anion Gap 10 (6-14) Blood Urea Nitrogen 22 mg/dL (8-26) Creatinine 1.2 mg/dL (0.7-1.3) Estimated GFR (Cockcroft-Gault) 59.7 Glucose Level 185 mg/dL (70-99) H Calcium Level 9.7 mg/dL (8.5-10.1) Glucose (Fingerstick) 179 mg/dL (70-99) H 215 mg/dL (70-99) H Current Medications: Meds: Current Medications Medications (Trade) Dose Ordered Sig/Darren Route PRN Reason Start Time Stop Time Status Last Admin Dose Admin Atorvastatin Calcium (Lipitor) 10 mg QHS PO 08/24/20 21:00 08/24/20 21:24 Carvedilol (Coreg) 6.25 mg BIDWMEALS PO 08/24/20 17:00 08/24/20 17:38 Furosemide (Lasix) 80 mg BID92 PO 08/24/20 14:00 08/24/20 13:14 Gabapentin (Neurontin) 300 mg TID PO 08/24/20 14:00 08/24/20 21:24 Lorazepam (Ativan) 0.5 mg BID PO 08/24/20 21:00 08/24/20 21:24 Insulin Glargine (Lantus Syringe) 40 unit BID SQ 08/24/20 21:00 08/24/20 21:29 Insulin Human Lispro (HumaLOG) 25 units TIDWMEALS SQ 08/24/20 17:00 08/24/20 17:51 I have reviewed the current psychotropics carefully including drug interactions. Risk benefit ratio favors no change other than as noted in my dictated progress note. Diagnosis: Problems: (1) Anxiety disorder, unspecified (2) Dementia, vascular, with depression (3) Dementia, vascular, with delusions (4) Major neurocognitive disorder, due to vascular disease, with behavioral disturbance, mild (5) Impulse control disorder, unspecified NURIA BARRETT MD Aug 24, 2020 21:58
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
--- NOTE | 2020-08-25 00:32 | NUR ---
Patient remains in the west hallway, awake. He has been pacing and door-checking. He continues to ask the same questions and is not happy with the answers. This RN offered patient PRNs to help him relax and sleep, and he declined. Will continue to monitor.
--- NOTE | 2020-08-25 04:11 | NUR ---
Patient requested a drink of water at 0120. This nurse dissolved PRN Zydis 2.5mg in the water. Patient drank the whole thing. Approximately 30 minutes later, patient began to doze off in the chair. He was asked if he was feeling ready to return to his room. He agreed. He is sitting quietly in his room presently, dozing off intermittently. When this RN asked if he would prefer to get in the bed, he stated "I can't sleep flat." This nurse offered to raise the head of the bed, and patient waved this offer off, stating "Nah, it's good the way it is." Will continue to monitor.
[2020-08-25 05:00] VITALS: BP 122/67
--- NOTE | 2020-08-25 06:57 | PDOC ---
Exam Note: Mason Note: This note is a late entry for 08/23/2020 covers elements not covered in my initial note. Subjective: The patient was reviewed on telehealth rounds in the evening of 08/23/2020 with Ysabel DO. Discussed with nursing staff, reviewed the chart. He remains confused, forgetful, trying to leave the unit. Nursing staff had called me several times. He got agitated slamming the door, refused medications, wanting to talk to his girlfriend. Review of Systems: No CV, , pulmonary, eye system symptoms on review. Mental Status Exam: Oriented to himself. Insight and judgment, recent and remote memory, attention and concentration, fund of knowledge is poor consistent with his diagnoses. Laboratory Data: Reviewed. Impression: Major neurocognitive disorder Alzheimer, vascular with delusion, depression, behavioral disturbance. Anxiety disorder unspecified. Impulse control disorder unspecified. Plan: No change from initial note. We will transition him to [facility] once COVID screen is negative. Assessment: Vital Signs/I&O: Vital Signs Date Time Temp Pulse Resp B/P (MAP) Pulse Ox O2 Delivery O2 Flow Rate FiO2 08/25/20 05:00 97.8 71 14 122/67 (85) 95 Room Air I & O 08/24/20 08/24/20 08/25/20 15:00 23:00 07:00 Intake Total 525 ml 360 ml 600 ml Balance 525 ml 360 ml 600 ml Labs: Laboratory Tests Test 08/24/20 16:45 08/24/20 17:16 08/24/20 19:39 D-Dimer (Adele) 1.13 mg/L (0.00-0.50) H Sodium Level 138 mmol/L (136-145) Potassium Level 3.7 mmol/L (3.5-5.1) Chloride Level 101 mmol/L (98-107) Carbon Dioxide Level 27 mmol/L (21-32) Anion Gap 10 (6-14) Blood Urea Nitrogen 22 mg/dL (8-26) Creatinine 1.2 mg/dL (0.7-1.3) Estimated GFR (Cockcroft-Gault) 59.7 Glucose Level 185 mg/dL (70-99) H Calcium Level 9.7 mg/dL (8.5-10.1) Glucose (Fingerstick) 179 mg/dL (70-99) H 215 mg/dL (70-99) H Current Medications: Meds: Current Medications Medications (Trade) Dose Ordered Sig/Darren Route PRN Reason Start Time Stop Time Status Last Admin Dose Admin Atorvastatin Calcium (Lipitor) 10 mg QHS PO 08/24/20 21:00 08/24/20 21:24 Carvedilol (Coreg) 6.25 mg BIDWMEALS PO 08/24/20 17:00 08/24/20 17:38 Furosemide (Lasix) 80 mg BID92 PO 08/24/20 14:00 08/24/20 13:14 Gabapentin (Neurontin) 300 mg TID PO 08/24/20 14:00 08/24/20 21:24 Lorazepam (Ativan) 0.5 mg BID PO 08/24/20 21:00 08/24/20 21:24 Olanzapine (ZyPREXA ZYDIS) 2.5 mg PRN Q2HRS PRN PO PSYCHOSIS 08/24/20 12:15 08/25/20 01:20 Insulin Glargine (Lantus Syringe) 40 unit BID SQ 08/24/20 21:00 08/24/20 21:29 Insulin Human Lispro (HumaLOG) 25 units TIDWMEALS SQ 08/24/20 17:00 08/24/20 17:51 I have reviewed the current psychotropics carefully including drug interactions. Risk benefit ratio favors no change other than as noted in my dictated progress note. Diagnosis: Problems: (1) Dementia in Alzheimer's disease with depression (2) Dementia in Alzheimer's disease with delusions (3) Impulse control disorder, unspecified (4) Anxiety disorder, unspecified (5) Dementia, vascular, with depression (6) Dementia, vascular, with delusions (7) Major neurocognitive disorder, due to vascular disease, with behavioral disturbance, mild ARNOLDNURIA MD Aug 25, 2020 06:57
--- NOTE | 2020-08-25 07:15 | PDOC ---
Exam Note: Mason Note: Kindly ignore the note of 08/23/2020 . It is an error. Please also refer to the separate dictated note~for this date of service dictated separately.~Patient seen individually. Discussed the patient with Nursing staff reviewed the chart.~Reviewed interim history and current functioning. Reviewed vital signs,~Labs/ Radiology~and current medications noted below. Continue current treatment with the changes noted in the dictated addendum note Assessment: Vital Signs/I&O: Vital Signs Date Time Temp Pulse Resp B/P (MAP) Pulse Ox O2 Delivery O2 Flow Rate FiO2 08/25/20 05:00 97.8 71 14 122/67 (85) 95 Room Air I & O 08/24/20 08/24/20 08/25/20 14:59 22:59 06:59 Intake Total 525 ml 360 ml 600 ml Balance 525 ml 360 ml 600 ml Labs: Laboratory Tests Test 08/24/20 16:45 08/24/20 17:16 08/24/20 19:39 D-Dimer (Adele) 1.13 mg/L (0.00-0.50) H Sodium Level 138 mmol/L (136-145) Potassium Level 3.7 mmol/L (3.5-5.1) Chloride Level 101 mmol/L (98-107) Carbon Dioxide Level 27 mmol/L (21-32) Anion Gap 10 (6-14) Blood Urea Nitrogen 22 mg/dL (8-26) Creatinine 1.2 mg/dL (0.7-1.3) Estimated GFR (Cockcroft-Gault) 59.7 Glucose Level 185 mg/dL (70-99) H Calcium Level 9.7 mg/dL (8.5-10.1) Glucose (Fingerstick) 179 mg/dL (70-99) H 215 mg/dL (70-99) H Current Medications: Meds: Current Medications Medications (Trade) Dose Ordered Sig/Darren Route PRN Reason Start Time Stop Time Status Last Admin Dose Admin Atorvastatin Calcium (Lipitor) 10 mg QHS PO 08/24/20 21:00 08/24/20 21:24 Carvedilol (Coreg) 6.25 mg BIDWMEALS PO 08/24/20 17:00 08/24/20 17:38 Furosemide (Lasix) 80 mg BID92 PO 08/24/20 14:00 08/24/20 13:14 Gabapentin (Neurontin) 300 mg TID PO 08/24/20 14:00 08/24/20 21:24 Lorazepam (Ativan) 0.5 mg BID PO 08/24/20 21:00 08/24/20 21:24 Olanzapine (ZyPREXA ZYDIS) 2.5 mg PRN Q2HRS PRN PO PSYCHOSIS 08/24/20 12:15 08/25/20 01:20 Insulin Glargine (Lantus Syringe) 40 unit BID SQ 08/24/20 21:00 08/24/20 21:29 Insulin Human Lispro (HumaLOG) 25 units TIDWMEALS SQ 08/24/20 17:00 08/24/20 17:51 I have reviewed the current psychotropics carefully including drug interactions. Risk benefit ratio favors no change other than as noted in my dictated progress note. Diagnosis: Problems: (1) Impulse control disorder, unspecified (2) Anxiety disorder, unspecified (3) Dementia, vascular, with depression (4) Dementia, vascular, with delusions (5) Major neurocognitive disorder, due to vascular disease, with behavioral disturbance, mild (6) Dementia in Alzheimer's disease with depression (7) Dementia in Alzheimer's disease with delusions NURIA BARRETT MD Aug 25, 2020 07:15
[2020-08-25] MEDS: PANTOPRAZOLE 40 MG TABLET. PO SCH (08:58)
[2020-08-25] MEDS: ASPIRIN CHEWABLE 81 MG TABLET. PO SCH (08:59)
[2020-08-25] MEDS: LOSARTAN 50 MG TABLET. PO SCH (08:59)
[2020-08-25] MEDS: LORazepam 0.5 MG TABLET PO SCH ×2 (08:59→21:12)
[2020-08-25] MEDS: CARVEDILOL 6.25 MG TABLET PO SCH ×2 (08:59→17:00)
[2020-08-25] MEDS: INSULIN GLARGINE SYRINGE. SQ SCH ×2 (09:00→21:15)
[2020-08-25] MEDS: GABAPENTIN 300 MG CAPSULE. PO SCH ×3 (09:00→21:12)
[2020-08-25] MEDS: INSULIN LISPRO 300 UNITS/3 ML VIAL. SQ SCH ×3 (09:00→17:00)
[2020-08-25] MEDS: FUROSEMIDE 40 MG TABLET PO SCH ×2 (09:00→13:28)
[2020-08-25] MEDS: SERTRALINE 25 MG TABLET. PO SCH (09:00)
[2020-08-25] MEDS: MUPIROCIN 2% TOPICAL OINTMENT 22GM TUBE. TP SCH (09:00)
[2020-08-25] MEDS: CYANOCOBALAMIN (VITAMIN B-12) 1,000 MCG TABLET. PO SCH (09:00)
--- NOTE | 2020-08-25 11:35 | NUR ---
Pt is calm, cooperative, and compliant. No agitation, no aggression no hallucinations no delusions. He did ask when he gets to leave and stated he has a local girlfriend that can take him home and that "actually I have 3 girlfriends, they all know about each other." Nurse was able to redirect him with conversation about his job history and past times. Pt requested a newspaper and nurse gave him one. PRN zyprexa zydis given with am medication.
[2020-08-25 15:00] VITALS: BP 141/77
[2020-08-25] MEDS: ATORVASTATIN CALCIUM 10 MG TABLET. PO SCH (21:12)
--- NOTE | 2020-08-25 21:36 | NUR ---
Pt. appropriate with all interactions, no inappropriate behaviors observed. Pt. cooperative with bloodsuger and expressed interest in taking a shower, upon return to room pt. was asleep in bed. Will offer shower again when awake.
--- NOTE | 2020-08-25 22:06 | PDOC ---
Exam Note: Mason Note: Please also refer to the separate dictated note~for this date of service dictated separately.~Patient seen individually. Discussed the patient with Nursing staff reviewed the chart.~Reviewed interim history and current functioning. Reviewed vital signs,~Labs/ Radiology~and current medications noted below. Continue current treatment with the changes noted in the dictated addendum note Assessment: Vital Signs/I&O: Vital Signs Date Time Temp Pulse Resp B/P (MAP) Pulse Ox O2 Delivery O2 Flow Rate FiO2 08/25/20 15:00 98.0 60 20 141/77 (98) 96 Room Air I & O 08/24/20 08/24/20 08/25/20 15:00 23:00 07:00 Intake Total 525 ml 360 ml 600 ml Balance 525 ml 360 ml 600 ml Labs: Laboratory Tests Test 08/25/20 08:27 08/25/20 11:51 08/25/20 17:21 08/25/20 19:14 Glucose (Fingerstick) 115 mg/dL (70-99) H 206 mg/dL (70-99) H 89 mg/dL (70-99) 150 mg/dL (70-99) H Current Medications: Meds: Current Medications Medications (Trade) Dose Ordered Sig/Darren Route PRN Reason Start Time Stop Time Status Last Admin Dose Admin Aspirin (Aspirin Chewable) 81 mg DAILY PO 08/25/20 09:00 08/25/20 08:59 Pantoprazole Sodium (Protonix) 40 mg DAILYAC PO 08/25/20 07:30 08/25/20 08:58 Sertraline HCl (Zoloft) 25 mg DAILY PO 08/25/20 09:00 08/25/20 09:00 Cyanocobalamin (Vitamin B-12) 1,000 mcg DAILY PO 08/25/20 09:00 08/25/20 09:00 Losartan Potassium (Cozaar) 100 mg DAILY PO 08/25/20 09:00 08/25/20 08:59 Mupirocin (Bactroban) 1 chet DAILY TP 08/25/20 09:00 08/25/20 09:00 I have reviewed the current psychotropics carefully including drug interactions. Risk benefit ratio favors no change other than as noted in my dictated progress note. Diagnosis: Problems: (1) Impulse control disorder, unspecified (2) Anxiety disorder, unspecified (3) Dementia, vascular, with depression (4) Dementia, vascular, with delusions (5) Major neurocognitive disorder, due to vascular disease, with behavioral disturbance, mild (6) Dementia in Alzheimer's disease with depression (7) Dementia in Alzheimer's disease with delusions NURIA BARRETT MD Aug 25, 2020 22:06
--- NOTE | 2020-08-25 22:34 | NUR ---
Patient in his room on assumption of care, awake in bed. Calm, cooperative and compliant with assessments and medications taken whole. Offered patient the opportunity to take a shower. He declined, stating "I'm cold and tired right now. I should have taken one this morning but I thought the doctor was going to let me go home. I will probably take one in the morning." He is much less demanding this shift. No agitation. No delusions voiced. Patient denies any pain or discomfort. Denies SI. He appears to be sleeping comfortably at present time. Will continue to monitor.
--- NOTE | 2020-08-25 23:19 | PDOC ---
Exam Note: Mason Note: This note for 08/25/2020 covers elements not covered in my initial note. Subjective: The patient was reviewed on telehealth rounds in the evening of 08/25/2020 with Isaura DO. Discussed with nursing staff, reviewed the chart. The patient has been somewhat obsessive, perseverating on different things. He is quite agitated previous evening. Short-term memory is impaired. He is frequently an elopement risk. He is frequently wanting to talk to his 3 girlfriends and somewhat over-preoccupied with this. Review of Systems: No CV, , pulmonary, eye system symptoms on review. Mental Status Exam: Oriented to himself. Insight and judgment, recent and remote memory, attention and concentration, fund of knowledge is poor consistent with his diagnoses. Laboratory Data: Reviewed. Impression: Major neurocognitive disorder Alzheimer, vascular with delusion, depression, behavioral disturbance. Anxiety disorder unspecified. Impulse control disorder unspecified. Plan: No change from initial note. Assessment: Vital Signs/I&O: Vital Signs Date Time Temp Pulse Resp B/P (MAP) Pulse Ox O2 Delivery O2 Flow Rate FiO2 08/25/20 15:00 98.0 60 20 141/77 (98) 96 Room Air I & O 08/24/20 08/24/20 08/25/20 15:00 23:00 07:00 Intake Total 525 ml 360 ml 600 ml Balance 525 ml 360 ml 600 ml Labs: Laboratory Tests Test 08/25/20 08:27 08/25/20 11:51 08/25/20 17:21 08/25/20 19:14 Glucose (Fingerstick) 115 mg/dL (70-99) H 206 mg/dL (70-99) H 89 mg/dL (70-99) 150 mg/dL (70-99) H Current Medications: Meds: Current Medications Medications (Trade) Dose Ordered Sig/Darren Route PRN Reason Start Time Stop Time Status Last Admin Dose Admin Aspirin (Aspirin Chewable) 81 mg DAILY PO 08/25/20 09:00 08/25/20 08:59 Pantoprazole Sodium (Protonix) 40 mg DAILYAC PO 08/25/20 07:30 08/25/20 08:58 Sertraline HCl (Zoloft) 25 mg DAILY PO 08/25/20 09:00 08/25/20 09:00 Cyanocobalamin (Vitamin B-12) 1,000 mcg DAILY PO 08/25/20 09:00 08/25/20 09:00 Losartan Potassium (Cozaar) 100 mg DAILY PO 08/25/20 09:00 08/25/20 08:59 Mupirocin (Bactroban) 1 chet DAILY TP 08/25/20 09:00 08/25/20 09:00 I have reviewed the current psychotropics carefully including drug interactions. Risk benefit ratio favors no change other than as noted in my dictated progress note. Diagnosis: Problems: (1) Impulse control disorder, unspecified (2) Anxiety disorder, unspecified (3) Dementia, vascular, with depression (4) Dementia, vascular, with delusions (5) Major neurocognitive disorder, due to vascular disease, with behavioral disturbance, mild (6) Dementia in Alzheimer's disease with depression (7) Dementia in Alzheimer's disease with delusions NURIA BARRETT MD Aug 25, 2020 23:19
--- NOTE | 2020-08-26 00:15 | NUR ---
Observed pt in room eating snack, entered room and asked pt. if he wanted to take a shower after he finished eating. Pt responded "yeah, that would be fine. Are you the same jennifer who locked me in the F hallway yesterday" I responded yes, i am. Do you understand why you were locked in the hallway? Pt responded, "Because kris amaya? is my f consumer attorney and i'm in court right now trying to get him removed. I'm not taking no F shower" I informed pt. that the reason he was locked in the hallway was for exhibiting hostile behavior, similar to his current behavior and restated pt. comment about being locked in the hallway yesterday. Told pt. that type of language was not appropriate and let pt. know I would check in on him later. Will allow pt. to finish snack and check back after a while on next round.
[2020-08-26] MEDS: traZODone 50 MG TABLET. PO PRN (01:07)
--- NOTE | 2020-08-26 02:15 | NUR ---
Patient getting agitated with CAPSULE MACHINE OPERATOR when he was asked if he wanted to take a shower since he was awake. He began to get angry, repeatedly saying "I don't know why I'm here. Why are you people keeping me locked up?" He was not interested in hearing any explanations from the CAPSULE MACHINE OPERATOR and was escalating his anger. This RN interjected and told the patient that we should take five and regroup, and that I would come in shortly to talk to him. A few minutes later, joined patient in his room. Told him I understood his frustration and asked if he wanted to talk about it. He began by stating "This is bullshit. This place is like a fpc and I want to know when I can leave." Reiterated to patient that this is a hospital behavioral unit, not a fpc, and that the decision to discharge him would be dependent on his behavior, the doctors recommendation, and his DPOA's approval. He angrily stated, "WHO? Ray fucking Kirt? I don't even know that jennifer. He was supposed to be helping me buy a property and now this crap! I need to call my house designer and take care of this." This RN continued to offer therapeutic listening and validate the patient's frustrations. He continued to repeat the same concerns and complaints, despite this RN explaining in several different ways what the process is and that there is nothing that can be accomplished at 2AM on a Thursday. This RN then attempted to change the subject, asking patient if he was tired and if he wanted to try to go back to sleep. He replied "Hell no, this is when I usually get up. I used to go shopping at night. I've got things to do." This RN explained that the other patients on the unit were trying to sleep, and offered the patient a PRN. He declined. Patient then asked "So, what? I have to just sit here all fucking night long?" This RN told him he was more than welcome to walk in the hallways, provided he kept his mask on and refrained from intruding on other patients rooms. He replied "That jennifer started talking to me, what am I supposed to do, ignore him?" (referencing another patient from the previous night.) This RN expressed sympathy for the patients boredom, and offered several choices of activity to keep him busy. He accepted the offer of a magazine, and then jokingly asked "Do you think they can get a car on blocks out there on the patio? That would keep me busy." RN asked patient if he would like to have a snack while reading, and he asked for cookies and milk. Upon return to the patient's room with the aforementioned items, the patient said "Thanks, but you never answered my question." This RN asked him to clarify and he stated "When the fuck do I get out of here." This RN replied that the answer was still the same as it had been the previous 5 times he had asked. He then asked "So, am I getting paid to be here then?" RN replied that he was not. He then said "Well I guess I'm gonna be suing the shit out of you people. I have plans, things to do, and you are all getting in the way of that." This RN told patient that she would return to check on him shortly. He huffed and said "OK fine, see ya." Patient is currently sitting on the side of his bed enjoying a snack and looking at magazines.
--- NOTE | 2020-08-26 03:32 | NUR ---
RN reported pt. ready to take shower, after opening door patient encountered at threshold of own room and was told that shower was ready. Pt. was led to open shower and entered of own accord, supplies and towels were pre-prepared and the pt. was asked if they needed any assistance with shower. Pt Responded," I can take my own shower, I don't need anyone looking at me" Pt. was asked if their clothing could be laundered and if a unit t-shirt, sweatpants, and sweatshirt would suffice while awaiting return of personal laundry. Pt stated, "I want my other clothes, I don't want to wear long pants, I want shorts" Pt. was informed that the unit did not have any shorts, that his clothes were dirty and that they (the pt.) should not put the dirty clothes back on after showering. Pt stated " I'l put them back on" Pt. was allowed to shower and after 10-15minutes was again asked if they would allow their clothing to be laundered if it was returned before breakfast. Pt. agreed and handed laundry to staff. Pt. was observed standing in water not washing for a duration of at least 5 minutes, staff notified patient that they had 2 minutes remaining in their shower time. Pt. turned off water within 2 minutes of this notification and dried self. Pt. attempted to put on pants but was unable to get feet through the legs as they appear enlarged. Staff assisted pt. with pants and pt. was able to pull them up of own ability and put on clean shirt. Pt. feet appear to be covered in white plaques, appearance similar to fungal infections. RN Notified. Pt returned to room and sat down on bed.
[2020-08-26 05:00] VITALS: BP 113/62
[2020-08-26 08:33] LABS: BASO # 0.1 x10^3/uL (0.0-0.2); BASO % 1 % (0-3); EOS # 0.1 x10^3/uL (0.0-0.7); EOS % 2 % (0-3); HEMATOCRIT 39.6 % (39.0-53.0); HEMOGLOBIN 12.9 g/dL (13.0-17.5); LYMPH # 1.9 x10^3/uL (1.0-4.8); LYMPH % 23 % (24-48); MEAN CORPUSCULAR HEMOGLOBIN 28 pg (25-35); MEAN CORPUSCULAR HGB CONC 33 g/dL (31-37); MEAN CORPUSCULAR VOLUME 87 fL (79-100); MONO # 0.7 x10^3/uL (0.0-1.1); MONO % 9 % (0-9); NEUT # 5.3 x10^3uL (1.8-7.7); NEUT % 66 % (31-73); PLATELET COUNT 79 x10^3/uL (140-400); RED BLOOD COUNT 4.56 x10^6/uL (4.30-5.70); RED CELL DISTRIBUTION WIDTH 15.4 % (11.5-14.5)
[2020-08-26 08:41] LABS: ALBUMIN 3.5 g/dL (3.4-5.0); ALBUMIN/GLOBULIN RATIO 0.8 (1.0-1.7); CALCIUM 9.3 mg/dL (8.5-10.1); CREATININE 1.3 mg/dL (0.7-1.3); GFR 54.4; POTASSIUM 3.8 mmol/L (3.5-5.1); TOTAL BILIRUBIN 0.3 mg/dL (0.2-1.0); TOTAL PROTEIN 7.9 g/dL (6.4-8.2)
[2020-08-26] MEDS: PANTOPRAZOLE 40 MG TABLET. PO SCH (08:59)
[2020-08-26] MEDS: MUPIROCIN 2% TOPICAL OINTMENT 22GM TUBE. TP SCH (09:00)
[2020-08-26] MEDS: CARVEDILOL 6.25 MG TABLET PO SCH ×2 (09:00→16:38)
[2020-08-26] MEDS: ASPIRIN CHEWABLE 81 MG TABLET. PO SCH (09:00)
[2020-08-26] MEDS: LOSARTAN 50 MG TABLET. PO SCH (09:00)
[2020-08-26] MEDS: LORazepam 0.5 MG TABLET PO SCH (09:00)
[2020-08-26] MEDS: INSULIN LISPRO 300 UNITS/3 ML VIAL. SQ SCH ×3 (09:01→17:01)
[2020-08-26] MEDS: SERTRALINE 25 MG TABLET. PO SCH (09:01)
[2020-08-26] MEDS: FUROSEMIDE 40 MG TABLET PO SCH ×2 (09:01→12:13)
[2020-08-26] MEDS: GABAPENTIN 300 MG CAPSULE. PO SCH ×3 (09:01→20:33)
[2020-08-26] MEDS: INSULIN GLARGINE SYRINGE. SQ SCH ×2 (09:01→20:35)
[2020-08-26] MEDS: CYANOCOBALAMIN (VITAMIN B-12) 1,000 MCG TABLET. PO SCH (09:01)
--- NOTE | 2020-08-26 11:03 | NUR ---
Pt is calm, cooperative, and compliant. No agitation, no aggression no hallucinations no delusions. Pt displayed anxiety this morning asking about leaving and when he gets to go home and how to get out of here. PRN zyprexa zydis given with am medication.
[2020-08-26 12:22] VITALS: BP 143/74
[2020-08-26 15:00] VITALS: BP 128/66
[2020-08-26] MEDS: QUEtiapine 25 MG TABLET. PO SCH (16:38)
[2020-08-26] MEDS: ATORVASTATIN CALCIUM 10 MG TABLET. PO SCH (20:33)
[2020-08-26] MEDS: MIRTAZAPINE 7.5 MG TABLET. PO SCH (20:34)
--- NOTE | 2020-08-26 22:11 | PDOC ---
Exam Note: Mason Note: Please also refer to the separate dictated note~for this date of service dictated separately.~Patient seen individually. Discussed the patient with Nursing staff reviewed the chart.~Reviewed interim history and current functioning. Reviewed vital signs,~Labs/ Radiology~and current medications noted below. Continue current treatment with the changes noted in the dictated addendum note Assessment: Vital Signs/I&O: Vital Signs Date Time Temp Pulse Resp B/P (MAP) Pulse Ox O2 Delivery O2 Flow Rate FiO2 08/26/20 16:38 73 128/66 08/26/20 15:00 98.4 20 94 Room Air I & O 08/25/20 08/25/20 08/26/20 15:00 23:00 07:00 Intake Total 500 ml 300 ml Balance 500 ml 300 ml Labs: Laboratory Tests Test 08/26/20 07:20 08/26/20 07:45 08/26/20 11:57 08/26/20 17:00 White Blood Count 8.0 x10^3/uL (4.0-11.0) Red Blood Count 4.56 x10^6/uL (4.30-5.70) Hemoglobin 12.9 g/dL (13.0-17.5) L Hematocrit 39.6 % (39.0-53.0) Mean Corpuscular Volume 87 fL (79-100) Mean Corpuscular Hemoglobin 28 pg (25-35) Mean Corpuscular Hemoglobin Concent 33 g/dL (31-37) Red Cell Distribution Width 15.4 % (11.5-14.5) H Platelet Count 79 x10^3/uL (140-400) L Neutrophils (%) (Auto) 66 % (31-73) Lymphocytes (%) (Auto) 23 % (24-48) L Monocytes (%) (Auto) 9 % (0-9) Eosinophils (%) (Auto) 2 % (0-3) Basophils (%) (Auto) 1 % (0-3) Neutrophils # (Auto) 5.3 x10^3uL (1.8-7.7) Lymphocytes # (Auto) 1.9 x10^3/uL (1.0-4.8) Monocytes # (Auto) 0.7 x10^3/uL (0.0-1.1) Eosinophils # (Auto) 0.1 x10^3/uL (0.0-0.7) Basophils # (Auto) 0.1 x10^3/uL (0.0-0.2) Sodium Level 139 mmol/L (136-145) Potassium Level 3.8 mmol/L (3.5-5.1) Chloride Level 102 mmol/L (98-107) Carbon Dioxide Level 29 mmol/L (21-32) Anion Gap 8 (6-14) Blood Urea Nitrogen 21 mg/dL (8-26) Creatinine 1.3 mg/dL (0.7-1.3) Estimated GFR (Cockcroft-Gault) 54.4 BUN/Creatinine Ratio 16 (6-20) Glucose Level 166 mg/dL (70-99) H Calcium Level 9.3 mg/dL (8.5-10.1) Total Bilirubin 0.3 mg/dL (0.2-1.0) Aspartate Amino Transferase (AST) 14 U/L (15-37) L Alanine Aminotransferase (ALT) 19 U/L (16-63) Alkaline Phosphatase 92 U/L (46-116) Total Protein 7.9 g/dL (6.4-8.2) Albumin 3.5 g/dL (3.4-5.0) Albumin/Globulin Ratio 0.8 (1.0-1.7) L Glucose (Fingerstick) 153 mg/dL (70-99) H 165 mg/dL (70-99) H 108 mg/dL (70-99) H Test 08/26/20 20:25 Glucose (Fingerstick) 129 mg/dL (70-99) H Current Medications: Meds: Current Medications Medications (Trade) Dose Ordered Sig/Darren Route PRN Reason Start Time Stop Time Status Last Admin Dose Admin Mirtazapine (Remeron) 7.5 mg QHS PO 08/26/20 21:00 08/26/20 20:34 Quetiapine Fumarate (SEROquel) 25 mg 0900,1500 PO 08/26/20 16:00 08/26/20 16:38 I have reviewed the current psychotropics carefully including drug interactions. Risk benefit ratio favors no change other than as noted in my dictated progress note. Diagnosis: Problems: (1) Impulse control disorder, unspecified (2) Anxiety disorder, unspecified (3) Dementia, vascular, with depression (4) Dementia, vascular, with delusions (5) Major neurocognitive disorder, due to vascular disease, with behavioral dist urbance, mild (6) Dementia in Alzheimer's disease with depression (7) Dementia in Alzheimer's disease with delusions NURIA BARRETT MD Aug 26, 2020 22:11
--- NOTE | 2020-08-26 22:56 | NUR ---
Patient in his room on assumption of care, awake in bed. Calm, cooperative and compliant with assessments and medications taken whole. Less demanding this shift. Did mention several times that he wants to leave, but was able to be redirected. No agitation. No delusions voiced. Patient denies any pain or discomfort. Denies SI. He appears to be sleeping comfortably at present time. Will continue to monitor.
[2020-08-27 06:00] VITALS: BP 128/68
[2020-08-27] MEDS: MUPIROCIN 2% TOPICAL OINTMENT 22GM TUBE. TP SCH (09:00)
[2020-08-27] MEDS: PANTOPRAZOLE 40 MG TABLET. PO SCH (09:10)
[2020-08-27] MEDS: CARVEDILOL 6.25 MG TABLET PO SCH ×2 (09:10→17:00)
[2020-08-27] MEDS: LOSARTAN 50 MG TABLET. PO SCH (09:11)
[2020-08-27] MEDS: ASPIRIN CHEWABLE 81 MG TABLET. PO SCH (09:11)
[2020-08-27] MEDS: SERTRALINE 25 MG TABLET. PO SCH (09:12)
[2020-08-27] MEDS: CYANOCOBALAMIN (VITAMIN B-12) 1,000 MCG TABLET. PO SCH (09:12)
[2020-08-27] MEDS: GABAPENTIN 300 MG CAPSULE. PO SCH ×3 (09:12→20:44)
[2020-08-27] MEDS: FUROSEMIDE 40 MG TABLET PO SCH ×2 (09:12→13:15)
[2020-08-27] MEDS: QUEtiapine 25 MG TABLET. PO SCH ×2 (09:12→13:15)
[2020-08-27] MEDS: INSULIN GLARGINE SYRINGE. SQ SCH ×2 (09:12→21:14)
[2020-08-27] MEDS: INSULIN LISPRO 300 UNITS/3 ML VIAL. SQ SCH ×4 (09:12→17:45)
[2020-08-27] MEDS: LORazepam 0.5 MG TABLET PO SCH (09:13)
--- NOTE | 2020-08-27 12:50 | NUR ---
ACTIVITY THERAPY ASSESSMENT Completed based on observation, notes and interview. Pt. was in his room and agreeable to speak with SACK REPAIRER. He listed that he was interested in cars/ motorcycles, lawn mowers, and mechanical work. He shared he worked at [employer] for 32 years and retired from there. He explained his girlfriend, Itzel, lives up [place] and they were living in an apartment and are trying to find a house. Pt. was confused, he asked SACK REPAIRER why he was here, wondered how long he had been here and concerned he needs some time to figure things out with a ride and a place before he's allowed to leave. SACK REPAIRER explained the structure a bit and reassured him he will have help from Social Work to figure out when he leaves. Pt. really wanted to figure out the last 6 months: why was he at [facility], why is he here, and he couldn't remember who brought him here. He was frustrated being here with no TV, nothing to do, no where to go. He said he always sleeps with a TV on so he doesn't sleep well here and he walk the unit because there is nothing else to do. He explained he is "69" and is not going to a "rest home" as he has so much he wants to do like moving back to [place]. He said "in ten years I might be begging to go to a rest home but not right now." He questions what would happen if he broke out and disappeared over the night. SACK REPAIRER explained the team is working on helping him be released but it takes time and that no one want his to try that, he said he didn't want to either but explained he feels like that his only option. When asked about friends, he named "Cesar and Olivier" as a couple guys he would be involved in with motorcycles. He said he's in touch with his aunts/ uncles around the holidays. When invited to join group, he responded that he will not be going to any of our groups. He was open to getting one, automobile theme, word search and see how he does. Initial goal aimed to increase stimulation: Pt. will participate in at least five individual or Activity Therapy groups before discharge.
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
[2020-08-27 15:52] VITALS: BP 109/58
[2020-08-27] MEDS: DIVALPROEX 125 MG CAP.SPRINK PO SCH (17:09)
[2020-08-27] MEDS: MIRTAZAPINE 7.5 MG TABLET. PO SCH (20:44)
[2020-08-27] MEDS: ATORVASTATIN CALCIUM 10 MG TABLET. PO SCH (20:45)
--- NOTE | 2020-08-27 21:59 | PDOC ---
Exam Note: Mason Note: Please also refer to the separate dictated note~for this date of service dictated separately.~Patient seen individually. Discussed the patient with Nursing staff reviewed the chart.~Reviewed interim history and current functioning. Reviewed vital signs,~Labs/ Radiology~and current medications noted below. Continue current treatment with the changes noted in the dictated addendum note Assessment: Vital Signs/I&O: Vital Signs Date Time Temp Pulse Resp B/P (MAP) Pulse Ox O2 Delivery O2 Flow Rate FiO2 08/27/20 17:00 86 131/78 08/27/20 15:52 97.4 19 94 08/27/20 06:00 Room Air I & O 08/26/20 08/26/20 08/27/20 15:00 23:00 07:00 Intake Total 600 ml 460 ml Balance 600 ml 460 ml Labs: Laboratory Tests Test 08/27/20 08:14 08/27/20 12:14 08/27/20 17:17 08/27/20 19:03 Glucose (Fingerstick) 132 mg/dL (70-99) H 122 mg/dL (70-99) H 131 mg/dL (70-99) H 219 mg/dL (70-99) H Current Medications: Meds: Current Medications Medications (Trade) Dose Ordered Sig/Darren Route PRN Reason Start Time Stop Time Status Last Admin Dose Admin Lorazepam (Ativan) 0.5 mg DAILY PO 08/27/20 09:00 08/29/20 11:00 08/27/20 09:13 Divalproex Sodium (Depakote Sprinkles) 125 mg 0900,1700 PO 08/27/20 17:00 08/27/20 17:09 I have reviewed the current psychotropics carefully including drug interactions. Risk benefit ratio favors no change other than as noted in my dictated progress note. Diagnosis: Problems: (1) Impulse control disorder, unspecified (2) Anxiety disorder, unspecified (3) Dementia, vascular, with depression (4) Dementia, vascular, with delusions (5) Major neurocognitive disorder, due to vascular disease, with behavioral disturbance, mild (6) Dementia in Alzheimer's disease with depression (7) Dementia in Alzheimer's disease with delusions NURIA BARRETT MD Aug 27, 2020 21:59
--- NOTE | 2020-08-28 06:28 | PDOC ---
Exam Note: Mason Note: This note is a late entry for 08/26/2020 covers elements not covered in my initial note. Subjective: The patient was reviewed on telehealth rounds in the evening of 08/26/2020 with Isaura DO. Discussed with nursing staff, reviewed the chart. The patient slept 3-3/4 hours previous night. Previous night he was quite anxious, restless, in and out of his room, getting into others rooms, up and down in his mood. He was up around at 2300 hours, difficult to redirect, finally did get some sleep. Review of Systems: No CV, , pulmonary, eye, ENT system symptoms on review. Mental Status Exam: Oriented to himself and situation. Speech is coherent, has some latency. Abstraction is fair. Computation impaired. Language function is intact. Attention span is short. Mood and affect remains somewhat anxious, labile but better than before. He seems less confused than before. Laboratory Data: Reviewed. Impression: Major neurocognitive disorder Alzheimer, vascular with delusion, depression, behavioral disturbance. Anxiety disorder unspecified. Impulse control disorder unspecified. Plan: The patient is on Ativan 0.5 mg b.i.d. This could be causing paradoxical disinhibition. We will reduce to 0.5 mg once a day for 3 days and then stop it. Start him on Remeron 7.5 mg h.s. for insomnia, Seroquel 25 mg p.o. now at the time of telehealth rounds and then 25 mg at 9 a.m. and 3 p.m. Continue rest of the psychotropics from initial note. Assessment: Vital Signs/I&O: Vital Signs Date Time Temp Pulse Resp B/P (MAP) Pulse Ox O2 Delivery O2 Flow Rate FiO2 08/27/20 17:00 86 131/78 08/27/20 15:52 97.4 19 94 08/27/20 06:00 Room Air I & O 08/27/20 08/27/20 08/28/20 15:00 23:00 07:00 Intake Total 960 ml 360 ml Balance 960 ml 360 ml Labs: Laboratory Tests Test 08/27/20 08:14 08/27/20 12:14 08/27/20 17:17 08/27/20 19:03 Glucose (Fingerstick) 132 mg/dL (70-99) H 122 mg/dL (70-99) H 131 mg/dL (70-99) H 219 mg/dL (70-99) H Current Medications: Meds: Current Medications Medications (Trade) Dose Ordered Sig/Darren Route PRN Reason Start Time Stop Time Status Last Admin Dose Admin Lorazepam (Ativan) 0.5 mg DAILY PO 08/27/20 09:00 08/29/20 11:00 08/27/20 09:13 Divalproex Sodium (Depakote Sprinkles) 125 mg 0900,1700 PO 08/27/20 17:00 08/27/20 17:09 I have reviewed the current psychotropics carefully including drug interactions. Risk benefit ratio favors no change other than as noted in my dictated progress note. Diagnosis: Problems: (1) Impulse control disorder, unspecified (2) Anxiety disorder, unspecified (3) Dementia, vascular, with depression (4) Dementia, vascular, with delusions (5) Major neurocognitive disorder, due to vascular disease, with behavioral disturbance, mild (6) Dementia in Alzheimer's disease with depression (7) Dementia in Alzheimer's disease with delusions NURIA BARRETT MD Aug 28, 2020 06:28
--- NOTE | 2020-08-28 06:33 | NUR ---
Patient woke up irritable. He came to the nurses station window several times, asking "What am I doing here? I want to get out of here. Is there a phone I can use?" Several staff talked to him and explained that he could not use the phone until after breakfast. He was unhappy with that, but accepted it. This RN asked him if he would allow a COVID swab, and he emphatically stated "NO!" and slammed his door.
--- NOTE | 2020-08-28 06:47 | PDOC ---
Exam Note: Mason Note: This note is a late entry for 08/27/2020 covers elements not covered in my initial note. Subjective: The patient was reviewed on telehealth rounds in the morning of 08/27/2020 for treatment team meeting with Maggie, social service staff, Isaura DO, Xin Huddleston, social service. Also reviewed on telehealth rounds in the evening of 08/27. Discussed with nursing staff, reviewed the chart. Per Isaura DO the patients appetite is 70%. Sleeping average 7 hours. He scores 20/30 in the mini-mental status exam. He slept better on Remeron. He has been less aggressive, but still fixated on discharge, unaware that he has a guardian appointed by the court as I questioned him. Review of Systems: No CV, , pulmonary, eye system symptoms on review. Mental Status Exam: Oriented to himself and situation. Speech is coherent, rapid at times. Abstraction is fair. Computation is impaired. Language function is intact. Attention span is short. Mood and affect remains labile and anxious, but better than before. Laboratory Data: Reviewed. Impression: Major neurocognitive disorder Alzheimer, vascular with delusion, depression, behavioral disturbance. Anxiety disorder unspecified. Impulse control disorder unspecified. Plan: Continue psychotropics from initial note. We will also go ahead and start Depakote as a mood stabilizer 125 mg 9 a.m. and 5 p.m. Check CBC, CMP, valproic acid level in 3 days. Adjust to reach therapeutic level. Assessment: Vital Signs/I&O: Vital Signs Date Time Temp Pulse Resp B/P (MAP) Pulse Ox O2 Delivery O2 Flow Rate FiO2 08/27/20 17:00 86 131/78 08/27/20 15:52 97.4 19 94 08/27/20 06:00 Room Air I & O 08/27/20 08/27/20 08/28/20 15:00 23:00 07:00 Intake Total 960 ml 360 ml Balance 960 ml 360 ml Labs: Laboratory Tests Test 08/27/20 08:14 08/27/20 12:14 08/27/20 17:17 08/27/20 19:03 Glucose (Fingerstick) 132 mg/dL (70-99) H 122 mg/dL (70-99) H 131 mg/dL (70-99) H 219 mg/dL (70-99) H Current Medications: Meds: Current Medications Medications (Trade) Dose Ordered Sig/Darren Route PRN Reason Start Time Stop Time Status Last Admin Dose Admin Lorazepam (Ativan) 0.5 mg DAILY PO 08/27/20 09:00 08/29/20 11:00 08/27/20 09:13 Divalproex Sodium (Depakote Sprinkles) 125 mg 0900,1700 PO 08/27/20 17:00 08/27/20 17:09 I have reviewed the current psychotropics carefully including drug interactions. Risk benefit ratio favors no change other than as noted in my dictated progress note. Diagnosis: Problems: (1) Impulse control disorder, unspecified (2) Anxiety disorder, unspecified (3) Dementia, vascular, with depression (4) Dementia, vascular, with delusions (5) Major neurocognitive disorder, due to vascular disease, with behavioral disturbance, mild (6) Dementia in Alzheimer's disease with depression (7) Dementia in Alzheimer's disease with delusions NURIA BARRETT MD Aug 28, 2020 06:47
[2020-08-28] MEDS: MUPIROCIN 2% TOPICAL OINTMENT 22GM TUBE. TP SCH (09:00)
[2020-08-28] MEDS: LORazepam 0.5 MG TABLET PO SCH (09:20)
[2020-08-28] MEDS: ASPIRIN CHEWABLE 81 MG TABLET. PO SCH (09:20)
[2020-08-28] MEDS: PANTOPRAZOLE 40 MG TABLET. PO SCH (09:20)
[2020-08-28] MEDS: FUROSEMIDE 40 MG TABLET PO SCH ×2 (09:20→14:30)
[2020-08-28] MEDS: DIVALPROEX 125 MG CAP.SPRINK PO SCH ×2 (09:20→17:18)
[2020-08-28] MEDS: CARVEDILOL 6.25 MG TABLET PO SCH ×2 (09:20→17:18)
[2020-08-28] MEDS: QUEtiapine 25 MG TABLET. PO SCH ×2 (09:20→14:30)
[2020-08-28] MEDS: GABAPENTIN 300 MG CAPSULE. PO SCH ×3 (09:20→19:42)
[2020-08-28] MEDS: SERTRALINE 25 MG TABLET. PO SCH (09:20)
[2020-08-28] MEDS: CYANOCOBALAMIN (VITAMIN B-12) 1,000 MCG TABLET. PO SCH (09:21)
[2020-08-28] MEDS: LOSARTAN 50 MG TABLET. PO SCH (09:21)
[2020-08-28] MEDS: INSULIN GLARGINE SYRINGE. SQ SCH ×2 (09:22→21:37)
[2020-08-28] MEDS: INSULIN LISPRO 300 UNITS/3 ML VIAL. SQ SCH ×3 (09:23→17:21)
--- NOTE | 2020-08-28 11:41 | NUR ---
Nursing note: Pt was asking right away this morning at shift change to use the phone, it was explained to pt that he must wait until after breakfast to use the phone. He was agitated and continuously asking why he's here and when he can leave. PRN was given with his AM meds. He asked about what all his meds were for stating "I don't take that many pills". He was compliant in taking them whole after an explanation was provided. He also allowed for a COVID swab to be completed. He is currently sitting quietly in his room. Will continue to monitor.
--- NOTE | 2020-08-28 14:53 | NUR ---
1:1 with Jake this afternoon. Jake was in his room but awoke easily upon this worker's arrival. He initially declined SW invite to group but with repeated encouragement went along. Once at group, Jake was able to participate in discussion and answer questions asked of him. He then went on to participate in the recreational therapy craft activity. Jake does best with distraction and diversional activities as otherwise, he focuses on "getting out" of the hospital and returning "home." Jake does not recall events leading to fdc placement or hospitalization. He expressed that others are lying about him, including his guardian, who he believes is unhappy with him because they both wanted the same property. NILE left message for guardian with intent to provide update from team meeting held on 08/27/20, awaiting return phone call. Call placed to Lin/Darshana at [facility], [place], both were busy, left message with request for return phone call. Awaiting call. Addendum: 08/28/20 at 1601 by JANAE DOWD Received return phone call from Lin at [facility] [place]. Provided progress report to Lin and reviewed recommendation for memory care placement related to Jake's expressions to leave and believing he has a home to return to or a job that he needs to get to. Lin shared that they had been coordinating with [facility] about Jake transferring to their memory care unit and indicated that Jake's legal guardian is in agreement with this plan. Call placed to Negrita, food and beverage director at [facility], who indicated that Jake has been accepted to memory care at [facility] once stable. NILE will send fax update on 09/04/20 per Negrita's preference with tentative d/c goal being late next week.
[2020-08-28 16:16] VITALS: BP 126/63
[2020-08-28] MEDS: ATORVASTATIN CALCIUM 10 MG TABLET. PO SCH (19:42)
[2020-08-28] MEDS: MIRTAZAPINE 7.5 MG TABLET. PO SCH (19:42)
--- NOTE | 2020-08-28 21:51 | PDOC ---
Exam Note: Mason Note: Please also refer to the separate dictated note~for this date of service dictated separately.~Patient seen individually. Discussed the patient with Nursing staff reviewed the chart.~Reviewed interim history and current functioning. Reviewed vital signs,~Labs/ Radiology~and current medications noted below. Continue current treatment with the changes noted in the dictated addendum note Assessment: Vital Signs/I&O: Vital Signs Date Time Temp Pulse Resp B/P (MAP) Pulse Ox O2 Delivery O2 Flow Rate FiO2 08/28/20 17:18 65 126/63 08/28/20 16:16 97.3 18 94 08/27/20 06:00 Room Air I & O 08/27/20 08/27/20 08/28/20 15:00 23:00 07:00 Intake Total 960 ml 360 ml Balance 960 ml 360 ml Labs: Laboratory Tests Test 08/28/20 08:21 08/28/20 12:05 08/28/20 17:02 08/28/20 18:58 Glucose (Fingerstick) 125 mg/dL (70-99) H 105 mg/dL (70-99) H 233 mg/dL (70-99) H 170 mg/dL (70-99) H Current Medications: I have reviewed the current psychotropics carefully including drug interactions. Risk benefit ratio favors no change other than as noted in my dictated progress note. Diagnosis: Problems: (1) Impulse control disorder, unspecified (2) Anxiety disorder, unspecified (3) Dementia, vascular, with depression (4) Dementia, vascular, with delusions (5) Major neurocognitive disorder, due to vascular disease, with behavioral disturbance, mild (6) Dementia in Alzheimer's disease with depression (7) Dementia in Alzheimer's disease with delusions NURIA BARRETT MD Aug 28, 2020 21:51
--- NOTE | 2020-08-29 05:06 | NUR ---
Nursing Note The patient was calm and cooperative with his medication and assessments. The patient took his medication whole. The patient had a very long phone conversation this shift. the patient has been appropriate during interactions with staff. The patient is currently awake sitting on the side of his bed.
[2020-08-29 06:17] VITALS: BP 113/59
[2020-08-29] MEDS: ASPIRIN CHEWABLE 81 MG TABLET. PO SCH (09:24)
[2020-08-29] MEDS: CARVEDILOL 6.25 MG TABLET PO SCH ×2 (09:24→17:26)
[2020-08-29] MEDS: GABAPENTIN 300 MG CAPSULE. PO SCH ×3 (09:24→20:28)
[2020-08-29] MEDS: FUROSEMIDE 40 MG TABLET PO SCH ×2 (09:24→13:00)
[2020-08-29] MEDS: SERTRALINE 25 MG TABLET. PO SCH (09:24)
[2020-08-29] MEDS: DIVALPROEX 125 MG CAP.SPRINK PO SCH ×2 (09:25→17:25)
[2020-08-29] MEDS: CYANOCOBALAMIN (VITAMIN B-12) 1,000 MCG TABLET. PO SCH (09:25)
[2020-08-29] MEDS: PANTOPRAZOLE 40 MG TABLET. PO SCH (09:25)
[2020-08-29] MEDS: LORazepam 0.5 MG TABLET PO SCH (09:25)
[2020-08-29] MEDS: LOSARTAN 50 MG TABLET. PO SCH (09:25)
[2020-08-29] MEDS: QUEtiapine 25 MG TABLET. PO SCH ×3 (09:28→17:26)
[2020-08-29] MEDS: INSULIN GLARGINE SYRINGE. SQ SCH ×2 (09:30→20:30)
[2020-08-29] MEDS: MUPIROCIN 2% TOPICAL OINTMENT 22GM TUBE. TP SCH (09:30)
[2020-08-29] MEDS: INSULIN LISPRO 300 UNITS/3 ML VIAL. SQ SCH ×3 (09:31→17:29)
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
[2020-08-29 15:44] VITALS: BP 151/71
--- NOTE | 2020-08-29 18:33 | NUR ---
Patient has been pleasant this afternoon. He was cooperative with his finger stick and insulin administration. Patient takes medications whole with water and is compliant. He has asked if he will see the doctor and when he can go home several more times. He remains calm and was not agitated today.
[2020-08-29] MEDS: ATORVASTATIN CALCIUM 10 MG TABLET. PO SCH (20:28)
[2020-08-29] MEDS: MIRTAZAPINE 7.5 MG TABLET. PO SCH (20:28)
--- NOTE | 2020-08-29 22:04 | PDOC ---
Exam Note: Mason Note: Please also refer to the separate dictated note~for this date of service dictated separately.~Patient seen individually. Discussed the patient with Nursing staff reviewed the chart.~Reviewed interim history and current functioning. Reviewed vital signs,~Labs/ Radiology~and current medications noted below. Continue current treatment with the changes noted in the dictated addendum note Assessment: Vital Signs/I&O: Vital Signs Date Time Temp Pulse Resp B/P (MAP) Pulse Ox O2 Delivery O2 Flow Rate FiO2 08/29/20 17:26 71 151/71 08/29/20 15:44 97.6 18 96 08/27/20 06:00 Room Air I & O 08/28/20 08/28/20 08/29/20 15:00 23:00 07:00 Intake Total 720 ml 480 ml Balance 720 ml 480 ml Labs: Laboratory Tests Test 08/29/20 08:06 08/29/20 12:06 08/29/20 17:04 08/29/20 19:07 Glucose (Fingerstick) 95 mg/dL (70-99) 149 mg/dL (70-99) H 226 mg/dL (70-99) H 282 mg/dL (70-99) H Current Medications: Meds: Current Medications Medications (Trade) Dose Ordered Sig/Darren Route PRN Reason Start Time Stop Time Status Last Admin Dose Admin Quetiapine Fumarate (SEROquel) 25 mg 0900,1300,1700 PO 08/29/20 09:00 08/29/20 17:26 I have reviewed the current psychotropics carefully including drug interactions. Risk benefit ratio favors no change other than as noted in my dictated progress note. Diagnosis: Problems: (1) Impulse control disorder, unspecified (2) Anxiety disorder, unspecified (3) Dementia, vascular, with depression (4) Dementia, vascular, with delusions (5) Major neurocognitive disorder, due to vascular disease, with behavioral disturbance, mild (6) Dementia in Alzheimer's disease with depression (7) Dementia in Alzheimer's disease with delusions NURIA BARRETT MD Aug 29, 2020 22:04
[2020-08-30] MEDS: traZODone 50 MG TABLET. PO PRN (00:28)
[2020-08-30] MEDS: ACETAMINOPHEN 325 MG TABLET PO PRN (00:32)
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
[2020-08-30 06:29] VITALS: BP 140/69
--- NOTE | 2020-08-30 06:36 | PDOC ---
Exam Note: Mason Note: This note is a late entry for 08/28/2020 covers elements not covered in my initial note. Subjective: The patient was seen face to face in the evening of 08/28/2020 with nursing staff. Discussed with nursing staff, reviewed the chart. The patient remains quite anxious, irritable at times, labile, obsessed about discharge plans, oblivious that he has a guardian, unaware of where he lives just wanting to go home. Review of Systems: No CV, , pulmonary, eye, ENT system symptoms on review. Mental Status Exam: Oriented to himself and situation. Speech is coherent. Abstraction is fair. Computation is impaired. Language function is intact. Attention span is short. Mood and affect remains labile and anxious, but better than before. On the mini-mental status exam the patient scores 20/30. Laboratory Data: Reviewed. Impression: Major neurocognitive disorder Alzheimer, vascular with delusion, depression, behavioral disturbance. Anxiety disorder unspecified. Impulse control disorder unspecified. Plan: Continue psychotropics from initial note. We have initiated Depakote 125 mg 9 a.m. and 5 p.m. Follow labs level in 3 days. Make further adjustments as clinically indicated. Assessment: Vital Signs/I&O: Vital Signs Date Time Temp Pulse Resp B/P (MAP) Pulse Ox O2 Delivery O2 Flow Rate FiO2 08/30/20 06:29 97.8 62 18 140/69 (92) 98 08/27/20 06:00 Room Air I & O 08/29/20 08/29/20 08/30/20 15:00 23:00 07:00 Intake Total 600 ml 480 ml Balance 600 ml 480 ml Labs: Laboratory Tests Test 08/29/20 08:06 08/29/20 12:06 08/29/20 17:04 08/29/20 19:07 Glucose (Fingerstick) 95 mg/dL (70-99) 149 mg/dL (70-99) H 226 mg/dL (70-99) H 282 mg/dL (70-99) H Current Medications: Meds: Current Medications Medications (Trade) Dose Ordered Sig/Darren Route PRN Reason Start Time Stop Time Status Last Admin Dose Admin Quetiapine Fumarate (SEROquel) 25 mg 0900,1300,1700 PO 08/29/20 09:00 08/29/20 17:26 I have reviewed the current psychotropics carefully including drug interactions. Risk benefit ratio favors no change other than as noted in my dictated progress note. Diagnosis: Problems: (1) Impulse control disorder, unspecified (2) Anxiety disorder, unspecified (3) Dementia, vascular, with depression (4) Dementia, vascular, with delusions (5) Major neurocognitive disorder, due to vascular disease, with behavioral disturbance, mild (6) Dementia in Alzheimer's disease with depression (7) Dementia in Alzheimer's disease with delusions NURIA BARRETT MD Aug 30, 2020 06:35
--- NOTE | 2020-08-30 06:51 | PDOC ---
Exam Note: Mason Note: This note is a late entry for 08/29/2020 covers elements not covered in my initial note. Subjective: The patient was seen face to face in the evening of 08/29/2020 with Ysabel DO. Discussed with nursing staff, reviewed the chart. He slept 4-1/2 hours previous night. He remains anxious, obsessive, wanting to go home, forgets that he has already addressed this, feels he has not seen the doctor ever here. In fact I have been seeing him every day. Review of Systems: No CV, , pulmonary, eye, ENT system symptoms on review. Mental Status Exam: Oriented to himself and situation. I met with him in his room. He was fixated, obsessive about discharge plans. I addressed with him. Abstraction is fair. Computation is impaired. Language function is intact. Attention span is short. Mood and affect remains labile and anxious, but better than before. Laboratory Data: Reviewed. Impression: Major neurocognitive disorder Alzheimer, vascular with delusion, depression, behavioral disturbance. Anxiety disorder unspecified. Impulse control disorder unspecified. Plan: Continue psychotropics from initial note. Assessment: Vital Signs/I&O: Vital Signs Date Time Temp Pulse Resp B/P (MAP) Pulse Ox O2 Delivery O2 Flow Rate FiO2 08/30/20 06:29 97.8 62 18 140/69 (92) 98 08/27/20 06:00 Room Air I & O 08/29/20 08/29/20 08/30/20 15:00 23:00 07:00 Intake Total 600 ml 480 ml Balance 600 ml 480 ml Labs: Laboratory Tests Test 08/29/20 08:06 08/29/20 12:06 08/29/20 17:04 08/29/20 19:07 Glucose (Fingerstick) 95 mg/dL (70-99) 149 mg/dL (70-99) H 226 mg/dL (70-99) H 282 mg/dL (70-99) H Current Medications: Meds: Current Medications Medications (Trade) Dose Ordered Sig/Darren Route PRN Reason Start Time Stop Time Status Last Admin Dose Admin Quetiapine Fumarate (SEROquel) 25 mg 0900,1300,1700 PO 08/29/20 09:00 08/29/20 17:26 I have reviewed the current psychotropics carefully including drug interactions. Risk benefit ratio favors no change other than as noted in my dictated progress note. Diagnosis: Problems: (1) Impulse control disorder, unspecified (2) Anxiety disorder, unspecified (3) Dementia, vascular, with depression (4) Dementia, vascular, with delusions (5) Major neurocognitive disorder, due to vascular disease, with behavioral disturbance, mild (6) Dementia in Alzheimer's disease with depression (7) Dementia in Alzheimer's disease with delusions NURIA BARRETT MD Aug 30, 2020 06:51
[2020-08-30] MEDS: FUROSEMIDE 40 MG TABLET PO SCH ×2 (08:45→12:52)
[2020-08-30] MEDS: ASPIRIN CHEWABLE 81 MG TABLET. PO SCH (08:45)
[2020-08-30] MEDS: CYANOCOBALAMIN (VITAMIN B-12) 1,000 MCG TABLET. PO SCH (08:45)
[2020-08-30] MEDS: GABAPENTIN 300 MG CAPSULE. PO SCH ×3 (08:45→19:41)
[2020-08-30] MEDS: PANTOPRAZOLE 40 MG TABLET. PO SCH (08:45)
[2020-08-30] MEDS: SERTRALINE 25 MG TABLET. PO SCH (08:45)
[2020-08-30] MEDS: CARVEDILOL 6.25 MG TABLET PO SCH ×2 (08:46→17:26)
[2020-08-30] MEDS: QUEtiapine 25 MG TABLET. PO SCH ×3 (08:46→17:25)
[2020-08-30] MEDS: DIVALPROEX 125 MG CAP.SPRINK PO SCH ×2 (08:46→17:25)
[2020-08-30] MEDS: LOSARTAN 50 MG TABLET. PO SCH (08:46)
[2020-08-30] MEDS: INSULIN LISPRO 300 UNITS/3 ML VIAL. SQ SCH ×3 (08:50→17:08)
[2020-08-30] MEDS: MUPIROCIN 2% TOPICAL OINTMENT 22GM TUBE. TP SCH (08:52)
[2020-08-30] MEDS: INSULIN GLARGINE SYRINGE. SQ SCH ×2 (08:52→19:44)
--- NOTE | 2020-08-30 09:30 | NUR ---
Patient is compliant with his medications. He takes them whole. Patient began demanding to make phone calls at 0730 this morning. Nurse told patient that no phone calls could be made until after breakfast was over, at 0900. At 0900 patient asked nurse to dial the phone for him. The phone calls were attempted twice, answering machine was reached each time and patient left messages for his girlfriend. Patient was reluctant to give the phone back to this nurse.
--- NOTE | 2020-08-30 13:10 | NUR ---
Patient has asked this nurse to put the "tubigrip" olamide hose on his lower legs multiple times in the last hour. Nurse provided education to patient that they need to be put on in the morning, before he gets up and his legs swell as it is not possible to put them on his legs at this time.
--- NOTE | 2020-08-30 13:15 | NUR ---
Patient is angry because nurse is unable to help him with the telephone at this time. Nurse advised patient that after 1400 would be a better time. Patient did not like that answer. Patient yelled "fuck you" at nurse and is angrily pacing in the hallway in front of the nurses station. Nurse assisted patient to place two phone calls this morning, he left messages twice.
--- NOTE | 2020-08-30 15:22 | NUR ---
1:1 with Jake to socialize and support. Jaek continues to ask why he he here. NILE reviewed that he is having his memory evaluated. Jake speaks of the desire to leave and feels he is being held against his will. He reported that he has a van that is being customized with a shower and a toilet so that he can travel anywhere he would like to go. Jake asked when he would be released from the hospital. NILE stated that provided he had no changes in condition, that he would be discharged late next week. NILE informed Jake that he would be moving in to a new apartment at [facility]. While Jake accepted this, he went on to say that he won't stay long. NILE reminded Jake that he has a legal guardian that has been appointed to assist him with decision making. Jake was complimentary fo the care he has received while on the unit but that he is just frustrated as he can not leave as he garzon. NILE allowed time for Jake to express his feelings and offered validation.
[2020-08-30 15:34] VITALS: BP 126/71
[2020-08-30] MEDS: ATORVASTATIN CALCIUM 10 MG TABLET. PO SCH (19:41)
[2020-08-30] MEDS: MELATONIN 3 MG TABLET PO SCH (19:43)
[2020-08-30] MEDS: MIRTAZAPINE 15 MG TABLET PO SCH (19:43)
--- NOTE | 2020-08-30 21:00 | NUR ---
Nursing Note Pt in room at shift change in bed awake, sits up on approach, is groggy but in good spirits, greatly improved over admission. Compliant and cooperative with meds whole. Denies complaints, no delusions or agitation. Blood sugar 172, patient stated he was dizzy at lunch and thought he had taken too much insulin. This was reported in nurse exchange that he wasn't feeling great after lunch. Pt also states he discharging next week sometime.
--- NOTE | 2020-08-30 22:11 | PDOC ---
Exam Note: Mason Note: Please also refer to the separate dictated note~for this date of service dictated separately.~Patient seen individually. Discussed the patient with Nursing staff reviewed the chart.~Reviewed interim history and current functioning. Reviewed vital signs,~Labs/ Radiology~and current medications noted below. Continue current treatment with the changes noted in the dictated addendum note Assessment: Vital Signs/I&O: Vital Signs Date Time Temp Pulse Resp B/P (MAP) Pulse Ox O2 Delivery O2 Flow Rate FiO2 08/30/20 17:26 68 126/71 08/30/20 15:34 97.5 16 96 08/27/20 06:00 Room Air I & O 08/29/20 08/29/20 08/30/20 15:00 23:00 07:00 Intake Total 600 ml 480 ml Balance 600 ml 480 ml Labs: Laboratory Tests Test 08/30/20 07:57 08/30/20 12:02 08/30/20 16:58 08/30/20 19:18 Glucose (Fingerstick) 109 mg/dL (70-99) H 182 mg/dL (70-99) H 119 mg/dL (70-99) H 172 mg/dL (70-99) H Current Medications: Meds: Current Medications Medications (Trade) Dose Ordered Sig/Darren Route PRN Reason Start Time Stop Time Status Last Admin Dose Admin Mirtazapine (Remeron) 15 mg QHS PO 08/30/20 21:00 08/30/20 19:43 Melatonin (Melatonin) 3 mg QHS PO 08/30/20 21:00 08/30/20 19:43 I have reviewed the current psychotropics carefully including drug interactions. Risk benefit ratio favors no change other than as noted in my dictated progress note. Diagnosis: Problems: (1) Impulse control disorder, unspecified (2) Anxiety disorder, unspecified (3) Dementia, vascular, with depression (4) Dementia, vascular, with delusions (5) Major neurocognitive disorder, due to vascular disease, with behavioral disturbance, mild (6) Dementia in Alzheimer's disease with depression (7) Dementia in Alzheimer's disease with delusions NURIA BARRETT MD Aug 30, 2020 22:10
[2020-08-31] MEDS: traZODone 50 MG TABLET. PO PRN ×2 (00:08→21:09)
[2020-08-31 06:43] VITALS: BP 92/50
[2020-08-31 06:47] LABS: BASO # 0.1 x10^3/uL (0.0-0.2); BASO % 1 % (0-3); EOS # 0.2 x10^3/uL (0.0-0.7); EOS % 4 % (0-3); LYMPH # 2.1 x10^3/uL (1.0-4.8); LYMPH % 33 % (24-48); MEAN CORPUSCULAR HEMOGLOBIN 28 pg (25-35); MEAN CORPUSCULAR HGB CONC 32 g/dL (31-37); MEAN CORPUSCULAR VOLUME 87 fL (79-100); MONO # 0.6 x10^3/uL (0.0-1.1); MONO % 10 % (0-9); NEUT # 3.4 x10^3uL (1.8-7.7); NEUT % 53 % (31-73); PLATELET COUNT 56 x10^3/uL (140-400); RED BLOOD COUNT 4.25 x10^6/uL (4.30-5.70); RED CELL DISTRIBUTION WIDTH 15.4 % (11.5-14.5); WHITE BLOOD COUNT 6.5 x10^3/uL (4.0-11.0)
[2020-08-31 07:02] LABS: ALBUMIN 3.2 g/dL (3.4-5.0); ALBUMIN/GLOBULIN RATIO 0.8 (1.0-1.7); ALK PHOS 84 U/L (46-116); ALT (SGPT) 16 U/L (16-63); ANION GAP 5 (6-14); AST (SGOT) 13 U/L (15-37); BLOOD UREA NITROGEN 28 mg/dL (8-26); BUN/CREATININE RATIO 18 (6-20); CALCIUM 8.7 mg/dL (8.5-10.1); CARBON DIOXIDE 32 mmol/L (21-32); CHLORIDE 104 mmol/L (98-107); CREATININE 1.6 mg/dL (0.7-1.3); GFR 42.8; GLUCOSE 128 mg/dL (70-99); POTASSIUM 3.9 mmol/L (3.5-5.1); SODIUM 141 mmol/L (136-145); TOTAL BILIRUBIN 0.3 mg/dL (0.2-1.0); TOTAL PROTEIN 7.2 g/dL (6.4-8.2)
[2020-08-31 07:09] LABS: VAL ACID 13 mcg/mL (50-100)
[2020-08-31] MEDS: INSULIN LISPRO 300 UNITS/3 ML VIAL. SQ SCH ×3 (07:50→17:00)
[2020-08-31] MEDS: ASPIRIN CHEWABLE 81 MG TABLET. PO SCH (09:13)
[2020-08-31] MEDS: DIVALPROEX 125 MG CAP.SPRINK PO SCH ×2 (09:14→17:43)
[2020-08-31] MEDS: QUEtiapine 25 MG TABLET. PO SCH ×3 (09:14→17:43)
[2020-08-31] MEDS: LOSARTAN 50 MG TABLET. PO SCH (09:14)
[2020-08-31] MEDS: FUROSEMIDE 40 MG TABLET PO SCH ×2 (09:14→13:47)
[2020-08-31] MEDS: SERTRALINE 25 MG TABLET. PO SCH (09:14)
[2020-08-31] MEDS: GABAPENTIN 300 MG CAPSULE. PO SCH ×3 (09:14→21:10)
[2020-08-31] MEDS: PANTOPRAZOLE 40 MG TABLET. PO SCH (09:14)
[2020-08-31] MEDS: CYANOCOBALAMIN (VITAMIN B-12) 1,000 MCG TABLET. PO SCH (09:14)
[2020-08-31] MEDS: CARVEDILOL 6.25 MG TABLET PO SCH ×2 (09:15→17:43)
[2020-08-31] MEDS: INSULIN GLARGINE SYRINGE. SQ SCH ×2 (09:16→21:11)
[2020-08-31] MEDS: MUPIROCIN 2% TOPICAL OINTMENT 22GM TUBE. TP SCH (09:16)
--- NOTE | 2020-08-31 10:05 | NUR ---
Patient was sitting on the side of the bed during assessment. He is oriented to self, and year at this time. He stated he is at the hospital for his feet. Patients lower leg skin is thickened and hyperpigmented it has been like that since admission. Patient stated it has been that way "a long time". He denies pain and discomfort when asked. Patient was cooperative this morning and compliant with medications given whole. Patient frequently asks when he can leave and go home. He does not remember having seen a doctor since he has been here.
[2020-08-31 16:00] VITALS: BP 147/72
[2020-08-31] MEDS: MIRTAZAPINE 15 MG TABLET PO SCH (21:09)
[2020-08-31] MEDS: ATORVASTATIN CALCIUM 10 MG TABLET. PO SCH (21:10)
[2020-08-31] MEDS: MELATONIN 3 MG TABLET PO SCH (21:10)
--- NOTE | 2020-08-31 21:58 | PDOC ---
Exam Note: Mason Note: Please also refer to the separate dictated note~for this date of service dictated separately.~Patient seen individually. Discussed the patient with Nursing staff reviewed the chart.~Reviewed interim history and current functioning. Reviewed vital signs,~Labs/ Radiology~and current medications noted below. Continue current treatment with the changes noted in the dictated addendum note Assessment: Vital Signs/I&O: Vital Signs Date Time Temp Pulse Resp B/P (MAP) Pulse Ox O2 Delivery O2 Flow Rate FiO2 08/31/20 17:43 71 147/72 08/31/20 16:00 97.0 17 96 08/27/20 06:00 Room Air I & O 08/30/20 08/30/20 08/31/20 15:00 23:00 07:00 Intake Total 760 ml 430 ml Balance 760 ml 430 ml Labs: Laboratory Tests Test 08/31/20 06:34 08/31/20 07:33 08/31/20 12:04 08/31/20 17:18 White Blood Count 6.5 x10^3/uL (4.0-11.0) Red Blood Count 4.25 x10^6/uL (4.30-5.70) L Hemoglobin 12.0 g/dL (13.0-17.5) L Hematocrit 37.0 % (39.0-53.0) L Mean Corpuscular Volume 87 fL (79-100) Mean Corpuscular Hemoglobin 28 pg (25-35) Mean Corpuscular Hemoglobin Concent 32 g/dL (31-37) Red Cell Distribution Width 15.4 % (11.5-14.5) H Platelet Count 56 x10^3/uL (140-400) L Neutrophils (%) (Auto) 53 % (31-73) Lymphocytes (%) (Auto) 33 % (24-48) Monocytes (%) (Auto) 10 % (0-9) H Eosinophils (%) (Auto) 4 % (0-3) H Basophils (%) (Auto) 1 % (0-3) Neutrophils # (Auto) 3.4 x10^3uL (1.8-7.7) Lymphocytes # (Auto) 2.1 x10^3/uL (1.0-4.8) Monocytes # (Auto) 0.6 x10^3/uL (0.0-1.1) Eosinophils # (Auto) 0.2 x10^3/uL (0.0-0.7) Basophils # (Auto) 0.1 x10^3/uL (0.0-0.2) Sodium Level 141 mmol/L (136-145) Potassium Level 3.9 mmol/L (3.5-5.1) Chloride Level 104 mmol/L (98-107) Carbon Dioxide Level 32 mmol/L (21-32) Anion Gap 5 (6-14) L Blood Urea Nitrogen 28 mg/dL (8-26) H Creatinine 1.6 mg/dL (0.7-1.3) H Estimated GFR (Cockcroft-Gault) 42.8 BUN/Creatinine Ratio 18 (6-20) Glucose Level 128 mg/dL (70-99) H Calcium Level 8.7 mg/dL (8.5-10.1) Total Bilirubin 0.3 mg/dL (0.2-1.0) Aspartate Amino Transferase (AST) 13 U/L (15-37) L Alanine Aminotransferase (ALT) 16 U/L (16-63) Alkaline Phosphatase 84 U/L (46-116) Total Protein 7.2 g/dL (6.4-8.2) Albumin 3.2 g/dL (3.4-5.0) L Albumin/Globulin Ratio 0.8 (1.0-1.7) L Valproic Acid Level 13 mcg/mL (50-100) L Valproic Acid Last Dose Date 08/30/20 Valproic Acid Last Dose Time 1700 Glucose (Fingerstick) 110 mg/dL (70-99) H 167 mg/dL (70-99) H 96 mg/dL (70-99) Test 08/31/20 19:32 Glucose (Fingerstick) 147 mg/dL (70-99) H Current Medications: I have reviewed the current psychotropics carefully including drug interactions. Risk benefit ratio favors no change other than as noted in my dictated progress note. Diagnosis: Problems: (1) Impulse control disorder, unspecified (2) Anxiety disorder, unspecified (3) Dementia, vascular, with depression (4) Dementia, vascular, with delusions (5) Major neurocognitive disorder, due to vascular disease, with behavioral disturbance, mild (6) Dementia in Alzheimer's disease with depression (7) Dementia in Alzheimer's disease with delusions NURIA BARRETT MD Aug 31, 2020 21:58
--- NOTE | 2020-08-31 22:47 | NUR ---
Patient is in his room on assumption of care, awake and reading a magazine. He is irritable, sarcastic. He asked "When the hell do I get out of here?" This nurse reiterated to him that decision is up to the doctor. He stated "Who? That jennifer with the glasses?" This nurse responded affirmatively and reminded the patient that he had just spoken to the doctor less than an hour earlier. Patient then stated "What the heck are all these pills? I don't take this many pills." Nurse named each pill for patient and explained that those had been prescribed for him. He was then compliant with taking his medications. This nurse asked the patient when he had his last bowel movement, and he stated it was today. His abdomen is firm. Active bowel sounds throughout and no complaints of any pain or tenderness. Patient appears to be sleeping comfortably at present time. Will continue to monitor.
[2020-09-01 06:07] VITALS: BP 112/67
--- NOTE | 2020-09-01 06:35 | PDOC ---
Exam Note: Mason Note: This note is a late entry for DOS 08/28/2020 and an addendum to the progress note dictated earlier for 08/28/2020. Subjective: The patient was seen face to face in the evening of 08/28/2020 with Shaista DO. Discussed with nursing staff, reviewed the chart. The patient slept 4-1/4 hours. He was threatening to staff, agitated previous evening wanting to call his girlfriend on the phone repeatedly, threatening to leave, called his web content developer oblivious that he has a court appointed guardian. He refused a COVID swab in the morning of 08/28 and did comply with it later. Rest information unchanged as previously dictated. Plan: The patient is currently on Seroquel 25 mg at 0900, 1500 hours and we will increase this to 25 mg 9 a.m. 1p.m. and 5 p.m. Rest psychotropics unchanged from what was dictated earlier. Assessment: Vital Signs/I&O: Vital Signs Date Time Temp Pulse Resp B/P (MAP) Pulse Ox O2 Delivery O2 Flow Rate FiO2 09/01/20 06:07 97.8 62 18 112/67 (82) 93 08/27/20 06:00 Room Air I & O 08/31/20 08/31/20 09/01/20 14:59 22:59 06:59 Intake Total 790 ml 360 ml 520 ml Balance 790 ml 360 ml 520 ml Labs: Laboratory Tests Test 08/31/20 07:33 08/31/20 12:04 08/31/20 17:18 08/31/20 19:32 Glucose (Fingerstick) 110 mg/dL (70-99) H 167 mg/dL (70-99) H 96 mg/dL (70-99) 147 mg/dL (70-99) H Current Medications: I have reviewed the current psychotropics carefully including drug interactions. Risk benefit ratio favors no change other than as noted in my dictated progress note. Diagnosis: Problems: (1) Impulse control disorder, unspecified (2) Anxiety disorder, unspecified (3) Dementia, vascular, with depression (4) Dementia, vascular, with delusions (5) Major neurocognitive disorder, due to vascular disease, with behavioral disturbance, mild (6) Dementia in Alzheimer's disease with depression (7) Dementia in Alzheimer's disease with delusions NURIA BARRETT MD Sep 01, 2020 06:35
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
--- NOTE | 2020-09-01 07:18 | PDOC ---
Exam Note: Mason Note: This note is a late entry for 08/31/2020 covers elements not covered in my initial note. Subjective: The patient was seen face to face in the evening of 08/31/2020 with Mikey DO. Discussed with nursing staff, reviewed the chart. The patient slept 6-3/4 hours previous night. He is obsessed about wanting to be discharged, threatened staff at times. Review of Systems: Ambulation is somewhat impaired. No CV, , pulmonary, eye, ENT system symptoms on review. Mental Status Exam: Oriented to himself and situation. He was somewhat more sedated, less aggressive as I met with him in the evening. Insight, judgment and recent memory is impaired. Remote is better. Language function is intact. Attention span is short. Mood and affect remains labile. Laboratory Data: Reviewed. Impression: Major neurocognitive disorder Alzheimer, vascular with delusion, depression, behavioral disturbance. Anxiety disorder unspecified. Impulse control disorder unspecified. Plan: The patients valproic acid level is 13 on 125 mg b.i.d. Depakote Sprinkles. We will increase to 250 mg b.i.d. Check CBC, CMP, valproic acid level in 3 days. Continue rest psychotropics unchanged from prior note. Assessment: Vital Signs/I&O: Vital Signs Date Time Temp Pulse Resp B/P (MAP) Pulse Ox O2 Delivery O2 Flow Rate FiO2 09/01/20 06:07 97.8 62 18 112/67 (82) 93 08/27/20 06:00 Room Air I & O 08/31/20 08/31/20 09/01/20 15:00 23:00 07:00 Intake Total 790 ml 360 ml 520 ml Balance 790 ml 360 ml 520 ml Labs: Laboratory Tests Test 08/31/20 07:33 08/31/20 12:04 08/31/20 17:18 08/31/20 19:32 Glucose (Fingerstick) 110 mg/dL (70-99) H 167 mg/dL (70-99) H 96 mg/dL (70-99) 147 mg/dL (70-99) H Current Medications: I have reviewed the current psychotropics carefully including drug interactions. Risk benefit ratio favors no change other than as noted in my dictated progress note. Diagnosis: Problems: (1) Impulse control disorder, unspecified (2) Anxiety disorder, unspecified (3) Dementia, vascular, with depression (4) Dementia, vascular, with delusions (5) Major neurocognitive disorder, due to vascular disease, with behavioral disturbance, mild (6) Dementia in Alzheimer's disease with depression (7) Dementia in Alzheimer's disease with delusions NURIA BARRETT MD Sep 01, 2020 07:18
[2020-09-01] MEDS: CARVEDILOL 6.25 MG TABLET PO SCH ×2 (08:59→17:00)
[2020-09-01] MEDS: PANTOPRAZOLE 40 MG TABLET. PO SCH (08:59)
[2020-09-01] MEDS: MUPIROCIN 2% TOPICAL OINTMENT 22GM TUBE. TP SCH (09:00)
[2020-09-01] MEDS: ASPIRIN CHEWABLE 81 MG TABLET. PO SCH (09:01)
[2020-09-01] MEDS: LOSARTAN 50 MG TABLET. PO SCH (09:02)
[2020-09-01] MEDS: INSULIN GLARGINE SYRINGE. SQ SCH ×2 (09:03→21:44)
[2020-09-01] MEDS: INSULIN LISPRO 300 UNITS/3 ML VIAL. SQ SCH ×3 (09:03→17:00)
[2020-09-01] MEDS: FUROSEMIDE 40 MG TABLET PO SCH ×2 (09:04→12:39)
[2020-09-01] MEDS: CYANOCOBALAMIN (VITAMIN B-12) 1,000 MCG TABLET. PO SCH (09:05)
[2020-09-01] MEDS: SERTRALINE 25 MG TABLET. PO SCH (09:05)
[2020-09-01] MEDS: GABAPENTIN 300 MG CAPSULE. PO SCH ×3 (09:05→21:42)
[2020-09-01] MEDS: QUEtiapine 25 MG TABLET. PO SCH ×3 (09:05→17:12)
[2020-09-01] MEDS: DIVALPROEX 125 MG CAP.SPRINK PO SCH ×2 (09:08→17:11)
--- NOTE | 2020-09-01 11:48 | NUR ---
Pt is calm, cooperative, and compliant. No agitation, no aggression no hallucinations no delusions. He is compliant with his medication and assessment. He is less fixated and adamant on "when am I getting out of here."
[2020-09-01 16:32] VITALS: BP 179/72
[2020-09-01] MEDS: ATORVASTATIN CALCIUM 10 MG TABLET. PO SCH (21:42)
[2020-09-01] MEDS: MELATONIN 3 MG TABLET PO SCH (21:42)
[2020-09-01] MEDS: MIRTAZAPINE 15 MG TABLET PO SCH (21:42)
[2020-09-01] MEDS: traZODone 50 MG TABLET. PO PRN (21:42)
--- NOTE | 2020-09-01 22:08 | PDOC ---
Exam Note: Mason Note: Please also refer to the separate dictated note~for this date of service dictated separately.~Patient seen individually. Discussed the patient with Nursing staff reviewed the chart.~Reviewed interim history and current functioning. Reviewed vital signs,~Labs/ Radiology~and current medications noted below. Continue current treatment with the changes noted in the dictated addendum note Assessment: Vital Signs/I&O: Vital Signs Date Time Temp Pulse Resp B/P (MAP) Pulse Ox O2 Delivery O2 Flow Rate FiO2 09/01/20 16:32 97.7 60 16 179/72 (107) 93 08/27/20 06:00 Room Air I & O 08/31/20 08/31/20 09/01/20 14:59 22:59 06:59 Intake Total 790 ml 360 ml 520 ml Balance 790 ml 360 ml 520 ml Labs: Laboratory Tests Test 09/01/20 07:55 09/01/20 11:58 09/01/20 16:52 09/01/20 19:43 Glucose (Fingerstick) 127 mg/dL (70-99) H 137 mg/dL (70-99) H 85 mg/dL (70-99) 145 mg/dL (70-99) H Current Medications: Meds: Current Medications Medications (Trade) Dose Ordered Sig/Darren Route PRN Reason Start Time Stop Time Status Last Admin Dose Admin Divalproex Sodium (Depakote Sprinkles) 250 mg 0900,1700 PO 09/01/20 09:00 09/01/20 17:11 I have reviewed the current psychotropics carefully including drug interactions. Risk benefit ratio favors no change other than as noted in my dictated progress note. Diagnosis: Problems: (1) Impulse control disorder, unspecified (2) Anxiety disorder, unspecified (3) Dementia, vascular, with depression (4) Dementia, vascular, with delusions (5) Major neurocognitive disorder, due to vascular disease, with behavioral disturbance, mild (6) Dementia in Alzheimer's disease with depression (7) Dementia in Alzheimer's disease with delusions NURIA BARRETT MD Sep 01, 2020 22:08
--- NOTE | 2020-09-02 04:53 | NUR ---
Nursing Note The patient was located in his room talking on the phone for several hours at the start of the shift. The patient was calm and appropriate during his assessment and inquired about a possible discharge date. The patient was compliant with his medications. The patient is currently laying in his bed awake.
[2020-09-02 06:03] VITALS: BP 122/69
[2020-09-02] MEDS: INSULIN LISPRO 300 UNITS/3 ML VIAL. SQ SCH ×3 (08:00→17:19)
[2020-09-02] MEDS: PANTOPRAZOLE 40 MG TABLET. PO SCH (08:04)
[2020-09-02] MEDS: SERTRALINE 25 MG TABLET. PO SCH (08:05)
[2020-09-02] MEDS: DIVALPROEX 125 MG CAP.SPRINK PO SCH ×2 (08:05→17:14)
[2020-09-02] MEDS: LOSARTAN 50 MG TABLET. PO SCH (08:05)
[2020-09-02] MEDS: ASPIRIN CHEWABLE 81 MG TABLET. PO SCH (08:05)
[2020-09-02] MEDS: CYANOCOBALAMIN (VITAMIN B-12) 1,000 MCG TABLET. PO SCH (08:05)
[2020-09-02] MEDS: QUEtiapine 25 MG TABLET. PO SCH ×3 (08:06→17:14)
[2020-09-02] MEDS: FUROSEMIDE 40 MG TABLET PO SCH ×2 (08:06→12:10)
[2020-09-02] MEDS: CARVEDILOL 6.25 MG TABLET PO SCH ×2 (08:06→17:14)
[2020-09-02] MEDS: GABAPENTIN 300 MG CAPSULE. PO SCH ×3 (08:07→21:08)
[2020-09-02] MEDS: MUPIROCIN 2% TOPICAL OINTMENT 22GM TUBE. TP SCH (09:00)
[2020-09-02] MEDS: INSULIN GLARGINE SYRINGE. SQ SCH ×2 (09:03→21:11)
--- NOTE | 2020-09-02 10:01 | NUR ---
Pt is calm, cooperative, and compliant. No agitation, no aggression no hallucinations no delusions. He is compliant with his medication and assessment. He is less fixated and adamant on "when am I getting out of here." and easier to be redirected. He enjoys laughing and joking with staff.
[2020-09-02 16:09] VITALS: BP 115/67
[2020-09-02] MEDS: MELATONIN 3 MG TABLET PO SCH (21:08)
[2020-09-02] MEDS: ATORVASTATIN CALCIUM 10 MG TABLET. PO SCH (21:09)
[2020-09-02] MEDS: MIRTAZAPINE 15 MG TABLET PO SCH (21:09)
[2020-09-02] MEDS: traZODone 50 MG TABLET. PO PRN (21:09)
--- NOTE | 2020-09-02 23:30 | NUR ---
Patient is in his room on assumption of care. He is compliant with assessments and medications taken whole. Has asked a couple of times "When can I get out of here?" but he is redirectable. No agitation. Patient denies any pain or discomfort. He appears to be sleeping comfortably at present time. Will continue to monitor.
[2020-09-03 05:52] VITALS: BP 156/74
--- NOTE | 2020-09-03 06:45 | PDOC ---
Exam Note: Mason Note: This note is a late entry for 09/01/2020 covers elements not covered in my initial note. Subjective: The patient was seen face to face in the evening of 09/01/2020 with Isaura DO. Discussed with nursing staff, reviewed the chart. The patient slept 7-3/4 hours previous night. He has been somewhat less obsessive about leaving but still quite verbal about this as I met with him in his room. Review of Systems: Ambulation is somewhat impaired. No CV, , pulmonary, eye, ENT system symptoms on review. Mental Status Exam: Oriented to himself and situation. Insight, judgment and recent memory is impaired. Remote is better. Language function is intact. Attention span is short. Mood and affect remains labile. Laboratory Data: Reviewed. Impression: Major neurocognitive disorder Alzheimer, vascular with delusion, depression, behavioral disturbance. Anxiety disorder unspecified. Impulse control disorder unspecified. Plan: We will make further adjustments as clinically indicated. Assessment: Vital Signs/I&O: Vital Signs Date Time Temp Pulse Resp B/P (MAP) Pulse Ox O2 Delivery O2 Flow Rate FiO2 09/03/20 05:52 97.9 76 18 156/74 (101) 92 I & O 09/02/20 09/02/20 09/03/20 15:00 23:00 07:00 Intake Total 720 ml 720 ml Balance 720 ml 720 ml Labs: Laboratory Tests Test 09/02/20 07:49 09/02/20 11:58 09/02/20 17:08 09/02/20 19:15 Glucose (Fingerstick) 95 mg/dL (70-99) 197 mg/dL (70-99) H 134 mg/dL (70-99) H 178 mg/dL (70-99) H Current Medications: I have reviewed the current psychotropics carefully including drug interactions. Risk benefit ratio favors no change other than as noted in my dictated progress note. Diagnosis: Problems: (1) Impulse control disorder, unspecified (2) Anxiety disorder, unspecified (3) Dementia, vascular, with depression (4) Dementia, vascular, with delusions (5) Major neurocognitive disorder, due to vascular disease, with behavioral dist urbance, mild (6) Dementia in Alzheimer's disease with depression (7) Dementia in Alzheimer's disease with delusions NURIA BARRETT MD Sep 03, 2020 06:45
--- NOTE | 2020-09-03 07:04 | PDOC ---
Exam Note: Mason Note: This note is a late entry for 09/02/2020 covers elements not covered in my initial note. Subjective: The patient was seen face to face in the evening of 09/02/2020 with Isaura DO. Discussed with nursing staff, reviewed the chart. The patient has been still obsessive about discharge as I met with him. Review of Systems: Ambulation is somewhat impaired. No CV, , pulmonary, eye, ENT system symptoms on review. Reliability poor. Mental Status Exam: Oriented to himself and situation. He was somewhat more sedated, less aggressive as I met with him in the evening. Insight, judgment and recent memory is impaired. Remote is better. Language function is intact. Attention span is short. Mood and affect remains labile. Laboratory Data: Reviewed. Impression: Major neurocognitive disorder Alzheimer, vascular with delusion, depression, behavioral disturbance. Anxiety disorder unspecified. Impulse control disorder unspecified. Plan: Continue rest psychotropics unchanged from prior note. Assessment: Vital Signs/I&O: Vital Signs Date Time Temp Pulse Resp B/P (MAP) Pulse Ox O2 Delivery O2 Flow Rate FiO2 09/03/20 05:52 97.9 76 18 156/74 (101) 92 I & O 09/02/20 09/02/20 09/03/20 15:00 23:00 07:00 Intake Total 720 ml 720 ml Balance 720 ml 720 ml Labs: Laboratory Tests Test 09/02/20 07:49 09/02/20 11:58 09/02/20 17:08 09/02/20 19:15 Glucose (Fingerstick) 95 mg/dL (70-99) 197 mg/dL (70-99) H 134 mg/dL (70-99) H 178 mg/dL (70-99) H Current Medications: I have reviewed the current psychotropics carefully including drug interactions. Risk benefit ratio favors no change other than as noted in my dictated progress note. Diagnosis: Problems: (1) Impulse control disorder, unspecified (2) Anxiety disorder, unspecified (3) Dementia, vascular, with depression (4) Dementia, vascular, with delusions (5) Major neurocognitive disorder, due to vascular disease, with behavioral disturbance, mild (6) Dementia in Alzheimer's disease with depression (7) Dementia in Alzheimer's disease with delusions NURIA BARRETT MD Sep 03, 2020 07:04
[2020-09-03] MEDS: PANTOPRAZOLE 40 MG TABLET. PO SCH (08:39)
[2020-09-03] MEDS: DIVALPROEX 125 MG CAP.SPRINK PO SCH ×2 (08:40→17:08)
[2020-09-03] MEDS: ASPIRIN CHEWABLE 81 MG TABLET. PO SCH (08:40)
[2020-09-03] MEDS: CARVEDILOL 6.25 MG TABLET PO SCH ×2 (08:40→17:08)
[2020-09-03] MEDS: LOSARTAN 50 MG TABLET. PO SCH (08:40)
[2020-09-03] MEDS: CYANOCOBALAMIN (VITAMIN B-12) 1,000 MCG TABLET. PO SCH (08:41)
[2020-09-03] MEDS: SERTRALINE 25 MG TABLET. PO SCH (08:41)
[2020-09-03] MEDS: FUROSEMIDE 40 MG TABLET PO SCH ×2 (08:41→12:46)
[2020-09-03] MEDS: GABAPENTIN 300 MG CAPSULE. PO SCH ×3 (08:41→20:13)
[2020-09-03] MEDS: QUEtiapine 25 MG TABLET. PO SCH ×3 (08:41→17:08)
[2020-09-03] MEDS: INSULIN LISPRO 300 UNITS/3 ML VIAL. SQ SCH ×3 (08:45→17:11)
[2020-09-03] MEDS: INSULIN GLARGINE SYRINGE. SQ SCH ×2 (08:46→20:36)
[2020-09-03] MEDS: MUPIROCIN 2% TOPICAL OINTMENT 22GM TUBE. TP SCH (09:00)
--- NOTE | 2020-09-03 11:49 | NUR ---
Pt is calm, cooperative, and compliant. No agitation, no aggression no hallucinations no delusions. He is compliant with his medication and assessment. He was confused this morning and looking for his wallet but easily redirected and reoriented. He believes the time is Jul 2000.
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
[2020-09-03 15:43] VITALS: BP 125/63
[2020-09-03] MEDS: traZODone 50 MG TABLET. PO PRN (20:13)
[2020-09-03] MEDS: MELATONIN 3 MG TABLET PO SCH (20:13)
[2020-09-03] MEDS: MIRTAZAPINE 15 MG TABLET PO SCH (20:14)
[2020-09-03] MEDS: ATORVASTATIN CALCIUM 10 MG TABLET. PO SCH (20:14)
--- NOTE | 2020-09-03 20:47 | NUR ---
Nursing Note: Location of Patient during Assessment: Pt sitting quietly in his room at shift change. Behaviors Mood and Affect this shift: Pt calm, pleasant, and interactive when approached. Medication Compliant: Compliant with medications administered whole. PRN Trazodone administered for insomnia. Assessment Compliant: Cooperative and compliant with assessment. Response After Interventions: Pt currently sitting quietly in his room.
--- NOTE | 2020-09-03 22:05 | PDOC ---
Exam Note: Mason Note: Please also refer to the separate dictated note~for this date of service dictated separately.~Patient seen individually. Discussed the patient with Nursing staff reviewed the chart.~Reviewed interim history and current functioning. Reviewed vital signs,~Labs/ Radiology~and current medications noted below. Continue current treatment with the changes noted in the dictated addendum note Assessment: Vital Signs/I&O: Vital Signs Date Time Temp Pulse Resp B/P (MAP) Pulse Ox O2 Delivery O2 Flow Rate FiO2 09/03/20 17:08 75 125/63 09/03/20 15:43 98.1 18 95 I & O 09/02/20 09/02/20 09/03/20 15:00 23:00 07:00 Intake Total 720 ml 720 ml Balance 720 ml 720 ml Labs: Laboratory Tests Test 09/03/20 08:10 09/03/20 12:37 09/03/20 17:05 09/03/20 19:08 Glucose (Fingerstick) 148 mg/dL (70-99) H 143 mg/dL (70-99) H 160 mg/dL (70-99) H 160 mg/dL (70-99) H Current Medications: I have reviewed the current psychotropics carefully including drug interactions. Risk benefit ratio favors no change other than as noted in my dictated progress note. Diagnosis: Problems: (1) Impulse control disorder, unspecified (2) Anxiety disorder, unspecified (3) Dementia, vascular, with depression (4) Dementia, vascular, with delusions (5) Major neurocognitive disorder, due to vascular disease, with behavioral disturbance, mild (6) Dementia in Alzheimer's disease with depression (7) Dementia in Alzheimer's disease with delusions NURIA BARRETT MD Sep 03, 2020 22:05
[2020-09-04 05:34] VITALS: BP 141/66
[2020-09-04 08:26] LABS: BASO # 0.1 x10^3/uL (0.0-0.2); BASO % 1 % (0-3); EOS # 0.2 x10^3/uL (0.0-0.7); EOS % 3 % (0-3); HEMATOCRIT 37.3 % (39.0-53.0); HEMOGLOBIN 12.3 g/dL (13.0-17.5); LYMPH # 2.2 x10^3/uL (1.0-4.8); LYMPH % 30 % (24-48); MEAN CORPUSCULAR HEMOGLOBIN 28 pg (25-35); MEAN CORPUSCULAR HGB CONC 33 g/dL (31-37); MEAN CORPUSCULAR VOLUME 86 fL (79-100); MONO # 0.6 x10^3/uL (0.0-1.1); MONO % 9 % (0-9); NEUT # 4.1 x10^3uL (1.8-7.7); NEUT % 57 % (31-73); PLATELET COUNT 54 x10^3/uL (140-400); RED BLOOD COUNT 4.35 x10^6/uL (4.30-5.70); RED CELL DISTRIBUTION WIDTH 15.3 % (11.5-14.5); WHITE BLOOD COUNT 7.3 x10^3/uL (4.0-11.0)
[2020-09-04 08:36] LABS: ALBUMIN 3.2 g/dL (3.4-5.0); ALBUMIN/GLOBULIN RATIO 0.8 (1.0-1.7); ALK PHOS 80 U/L (46-116); ALT (SGPT) 14 U/L (16-63); ANION GAP 10 (6-14); AST (SGOT) 11 U/L (15-37); BLOOD UREA NITROGEN 29 mg/dL (8-26); BUN/CREATININE RATIO 22 (6-20); CALCIUM 9.2 mg/dL (8.5-10.1); CARBON DIOXIDE 28 mmol/L (21-32); CHLORIDE 104 mmol/L (98-107); CREATININE 1.3 mg/dL (0.7-1.3); GFR 54.4; GLUCOSE 134 mg/dL (70-99); POTASSIUM 3.6 mmol/L (3.5-5.1); SODIUM 142 mmol/L (136-145); TOTAL BILIRUBIN 0.2 mg/dL (0.2-1.0); TOTAL PROTEIN 7.4 g/dL (6.4-8.2)
[2020-09-04] MEDS: ASPIRIN CHEWABLE 81 MG TABLET. PO SCH (08:40)
[2020-09-04] MEDS: DIVALPROEX 125 MG CAP.SPRINK PO SCH ×2 (08:40→18:17)
[2020-09-04] MEDS: CYANOCOBALAMIN (VITAMIN B-12) 1,000 MCG TABLET. PO SCH (08:41)
[2020-09-04] MEDS: SERTRALINE 25 MG TABLET. PO SCH (08:41)
[2020-09-04] MEDS: GABAPENTIN 300 MG CAPSULE. PO SCH ×3 (08:41→20:00)
[2020-09-04] MEDS: PANTOPRAZOLE 40 MG TABLET. PO SCH (08:41)
[2020-09-04] MEDS: LOSARTAN 50 MG TABLET. PO SCH (08:41)
[2020-09-04] MEDS: CARVEDILOL 6.25 MG TABLET PO SCH ×2 (08:42→18:14)
[2020-09-04] MEDS: FUROSEMIDE 40 MG TABLET PO SCH ×2 (08:42→13:09)
[2020-09-04] MEDS: QUEtiapine 25 MG TABLET. PO SCH ×3 (08:42→18:12)
[2020-09-04] MEDS: INSULIN GLARGINE SYRINGE. SQ SCH ×2 (08:55→20:01)
[2020-09-04] MEDS: INSULIN LISPRO 300 UNITS/3 ML VIAL. SQ SCH ×3 (08:56→18:22)
[2020-09-04] MEDS: MUPIROCIN 2% TOPICAL OINTMENT 22GM TUBE. TP SCH (08:56)
[2020-09-04 09:15] LABS: VAL ACID 25 mcg/mL (50-100)
--- NOTE | 2020-09-04 10:05 | NUR ---
Patient sitting on the side of his bed. Cooperative assessment and compliant with medications taken whole. Patient denies pain and is concerned about when he is leaving. Cooperative with lab blood draw, valproic acid level is now 25. Patient is not agitated or aggressive towards staff. He stated it is 2000, is aware he is in the hospital but denies the reason.
--- NOTE | 2020-09-04 12:01 | NUR ---
Faxed current notes, medication list, and labs to Negrita Grace at [facility] for review. NILE left message for Negrita Grace with request for call back to confirm she received the faxed update and to begin coordinating for discharge on 09/07/20. Awaiting return call. Addendum: 09/05/20 at 0844 by JANAE DOWD Received return phone call back from Negrita who indicated that [facility] can transport Jake on 09/07/20 at 11am. Left message for Jake's guardian, Dakota Moralez, with intent to update. Awaiting return phone call.
[2020-09-04 16:08] VITALS: BP 147/70
[2020-09-04] MEDS: ACETAMINOPHEN 325 MG TABLET PO PRN (18:11)
[2020-09-04] MEDS: ATORVASTATIN CALCIUM 10 MG TABLET. PO SCH (20:00)
[2020-09-04] MEDS: traZODone 50 MG TABLET. PO PRN (20:00)
[2020-09-04] MEDS: MELATONIN 3 MG TABLET PO SCH (20:00)
[2020-09-04] MEDS: MIRTAZAPINE 15 MG TABLET PO SCH (20:00)
--- NOTE | 2020-09-04 21:22 | NUR ---
Nursing Note: Pt sitting quietly in his room at shift change. Pt calm, interactive, and confused this evening. Pt reports that it is August 2000, when I re-oriented him, he replied "that's what I said", then laughed. Pt cooperative and compliant with assessment and medications. Pt currently sitting quietly on the side of his bed.
--- NOTE | 2020-09-04 21:59 | PDOC ---
Exam Note: Mason Note: Please also refer to the separate dictated note~for this date of service dictated separately.~Patient seen individually. Discussed the patient with Nursing staff reviewed the chart.~Reviewed interim history and current functioning. Reviewed vital signs,~Labs/ Radiology~and current medications noted below. Continue current treatment with the changes noted in the dictated addendum note Assessment: Vital Signs/I&O: Vital Signs Date Time Temp Pulse Resp B/P (MAP) Pulse Ox O2 Delivery O2 Flow Rate FiO2 09/04/20 18:14 68 147/70 09/04/20 16:08 97.0 19 96 I & O 09/03/20 09/03/20 09/04/20 15:00 23:00 07:00 Intake Total 685 ml 685 ml Balance 685 ml 685 ml Labs: Laboratory Tests Test 09/04/20 07:30 09/04/20 07:45 09/04/20 11:46 09/04/20 17:16 White Blood Count 7.3 x10^3/uL (4.0-11.0) Red Blood Count 4.35 x10^6/uL (4.30-5.70) Hemoglobin 12.3 g/dL (13.0-17.5) L Hematocrit 37.3 % (39.0-53.0) L Mean Corpuscular Volume 86 fL (79-100) Mean Corpuscular Hemoglobin 28 pg (25-35) Mean Corpuscular Hemoglobin Concent 33 g/dL (31-37) Red Cell Distribution Width 15.3 % (11.5-14.5) H Platelet Count 54 x10^3/uL (140-400) L Neutrophils (%) (Auto) 57 % (31-73) Lymphocytes (%) (Auto) 30 % (24-48) Monocytes (%) (Auto) 9 % (0-9) Eosinophils (%) (Auto) 3 % (0-3) Basophils (%) (Auto) 1 % (0-3) Neutrophils # (Auto) 4.1 x10^3uL (1.8-7.7) Lymphocytes # (Auto) 2.2 x10^3/uL (1.0-4.8) Monocytes # (Auto) 0.6 x10^3/uL (0.0-1.1) Eosinophils # (Auto) 0.2 x10^3/uL (0.0-0.7) Basophils # (Auto) 0.1 x10^3/uL (0.0-0.2) Sodium Level 142 mmol/L (136-145) Potassium Level 3.6 mmol/L (3.5-5.1) Chloride Level 104 mmol/L (98-107) Carbon Dioxide Level 28 mmol/L (21-32) Anion Gap 10 (6-14) Blood Urea Nitrogen 29 mg/dL (8-26) H Creatinine 1.3 mg/dL (0.7-1.3) Estimated GFR (Cockcroft-Gault) 54.4 BUN/Creatinine Ratio 22 (6-20) H Glucose Level 134 mg/dL (70-99) H Calcium Level 9.2 mg/dL (8.5-10.1) Total Bilirubin 0.2 mg/dL (0.2-1.0) Aspartate Amino Transferase (AST) 11 U/L (15-37) L Alanine Aminotransferase (ALT) 14 U/L (16-63) L Alkaline Phosphatase 80 U/L (46-116) Total Protein 7.4 g/dL (6.4-8.2) Albumin 3.2 g/dL (3.4-5.0) L Albumin/Globulin Ratio 0.8 (1.0-1.7) L Valproic Acid Level 25 mcg/mL (50-100) L Valproic Acid Last Dose Date 09/03/20 Valproic Acid Last Dose Time 1700 Glucose (Fingerstick) 138 mg/dL (70-99) H 223 mg/dL (70-99) H 211 mg/dL (70-99) H Test 09/04/20 18:59 Glucose (Fingerstick) 260 mg/dL (70-99) H Current Medications: Meds: Current Medications Medications (Trade) Dose Ordered Sig/Darren Route PRN Reason Start Time Stop Time Status Last Admin Dose Admin Divalproex Sodium (Depakote Sprinkles) 375 mg 0900,1700 PO 09/04/20 17:15 09/04/20 18:17 I have reviewed the current psychotropics carefully including drug interactions. Risk benefit ratio favors no change other than as noted in my dictated progress note. Diagnosis: Problems: (1) Impulse control disorder, unspecified (2) Anxiety disorder, unspecified (3) Dementia, vascular, with depression (4) Dementia, vascular, with delusions (5) Major neurocognitive disorder, due to vascular disease, with behavioral disturbance, mild (6) Dementia in Alzheimer's disease with depression (7) Dementia in Alzheimer's disease with delusions NURIA BARRETT MD Sep 04, 2020 21:59
[2020-09-05 06:11] VITALS: BP 125/62
--- NOTE | 2020-09-05 07:06 | PDOC ---
Exam Note: Mason Note: This note is a late entry for 09/03/2020 covers elements not covered in my initial note. Subjective: The patient was seen face to face in the morning of 09/03/2020 for treatment meeting with Xin Blackwood Nicky (social service staff), Becky, Activity Therapy, and Isaura RN. Discussed with nursing staff, reviewed the chart. The patient was also seen individually in the evening. Appetite is 100%. He slept 6 hours previous night. He is less irritable, somewhat more confused in the morning, looking for a black wallet. Reportedly he has been accepted at [facility], somewhat sedated in the evening. Review of Systems: Positive for tiredness. No CV, , pulmonary, eye system symptoms on review. Gait unsteady. Mental Status Exam: Oriented to himself and situation. He was somewhat sedat ed, less irritable as I met with him in the evening. Insight, judgment and recent memory is impaired. Remote is better. Language function is intact. Attention span is short. Mood and affect remains labile. Laboratory Data: Reviewed. Impression: Major neurocognitive disorder Alzheimer, vascular with delusion, depression, behavioral disturbance. Anxiety disorder unspecified. Impulse control disorder unspecified. Plan: No change from initial note. Assessment: Vital Signs/I&O: Vital Signs Date Time Temp Pulse Resp B/P (MAP) Pulse Ox O2 Delivery O2 Flow Rate FiO2 09/05/20 06:11 97.4 58 18 125/62 (83) 92 Room Air I & O 09/04/20 09/04/20 09/05/20 15:00 23:00 07:00 Intake Total 960 ml 720 ml Balance 960 ml 720 ml Labs: Laboratory Tests Test 09/04/20 07:30 09/04/20 07:45 09/04/20 11:46 09/04/20 17:16 White Blood Count 7.3 x10^3/uL (4.0-11.0) Red Blood Count 4.35 x10^6/uL (4.30-5.70) Hemoglobin 12.3 g/dL (13.0-17.5) L Hematocrit 37.3 % (39.0-53.0) L Mean Corpuscular Volume 86 fL (79-100) Mean Corpuscular Hemoglobin 28 pg (25-35) Mean Corpuscular Hemoglobin Concent 33 g/dL (31-37) Red Cell Distribution Width 15.3 % (11.5-14.5) H Platelet Count 54 x10^3/uL (140-400) L Neutrophils (%) (Auto) 57 % (31-73) Lymphocytes (%) (Auto) 30 % (24-48) Monocytes (%) (Auto) 9 % (0-9) Eosinophils (%) (Auto) 3 % (0-3) Basophils (%) (Auto) 1 % (0-3) Neutrophils # (Auto) 4.1 x10^3uL (1.8-7.7) Lymphocytes # (Auto) 2.2 x10^3/uL (1.0-4.8) Monocytes # (Auto) 0.6 x10^3/uL (0.0-1.1) Eosinophils # (Auto) 0.2 x10^3/uL (0.0-0.7) Basophils # (Auto) 0.1 x10^3/uL (0.0-0.2) Sodium Level 142 mmol/L (136-145) Potassium Level 3.6 mmol/L (3.5-5.1) Chloride Level 104 mmol/L (98-107) Carbon Dioxide Level 28 mmol/L (21-32) Anion Gap 10 (6-14) Blood Urea Nitrogen 29 mg/dL (8-26) H Creatinine 1.3 mg/dL (0.7-1.3) Estimated GFR (Cockcroft-Gault) 54.4 BUN/Creatinine Ratio 22 (6-20) H Glucose Level 134 mg/dL (70-99) H Calcium Level 9.2 mg/dL (8.5-10.1) Total Bilirubin 0.2 mg/dL (0.2-1.0) Aspartate Amino Transferase (AST) 11 U/L (15-37) L Alanine Aminotransferase (ALT) 14 U/L (16-63) L Alkaline Phosphatase 80 U/L (46-116) Total Protein 7.4 g/dL (6.4-8.2) Albumin 3.2 g/dL (3.4-5.0) L Albumin/Globulin Ratio 0.8 (1.0-1.7) L Valproic Acid Level 25 mcg/mL (50-100) L Valproic Acid Last Dose Date 09/03/20 Valproic Acid Last Dose Time 1700 Glucose (Fingerstick) 138 mg/dL (70-99) H 223 mg/dL (70-99) H 211 mg/dL (70-99) H Test 09/04/20 18:59 Glucose (Fingerstick) 260 mg/dL (70-99) H Current Medications: Meds: Current Medications Medications (Trade) Dose Ordered Sig/Darren Route PRN Reason Start Time Stop Time Status Last Admin Dose Admin Divalproex Sodium (Depakote Sprinkles) 375 mg 0900,1700 PO 09/04/20 17:15 09/04/20 18:17 I have reviewed the current psychotropics carefully including drug interactions. Risk benefit ratio favors no change other than as noted in my dictated progress note. Diagnosis: Problems: (1) Impulse control disorder, unspecified (2) Anxiety disorder, unspecified (3) Dementia, vascular, with depression (4) Dementia, vascular, with delusions (5) Major neurocognitive disorder, due to vascular disease, with behavioral disturbance, mild (6) Dementia in Alzheimer's disease with depression (7) Dementia in Alzheimer's disease with delusions NURIA BARRETT MD Sep 05, 2020 07:06
[2020-09-05] MEDS: MUPIROCIN 2% TOPICAL OINTMENT 22GM TUBE. TP SCH (09:00)
[2020-09-05] MEDS: PANTOPRAZOLE 40 MG TABLET. PO SCH (09:12)
[2020-09-05] MEDS: SERTRALINE 25 MG TABLET. PO SCH (09:13)
[2020-09-05] MEDS: CARVEDILOL 6.25 MG TABLET PO SCH ×2 (09:14→17:20)
[2020-09-05] MEDS: DIVALPROEX 125 MG CAP.SPRINK PO SCH ×2 (09:14→17:21)
[2020-09-05] MEDS: ASPIRIN CHEWABLE 81 MG TABLET. PO SCH (09:14)
[2020-09-05] MEDS: FUROSEMIDE 40 MG TABLET PO SCH ×2 (09:15→12:25)
[2020-09-05] MEDS: GABAPENTIN 300 MG CAPSULE. PO SCH ×3 (09:15→20:29)
[2020-09-05] MEDS: LOSARTAN 50 MG TABLET. PO SCH (09:16)
[2020-09-05] MEDS: CYANOCOBALAMIN (VITAMIN B-12) 1,000 MCG TABLET. PO SCH (09:16)
[2020-09-05] MEDS: QUEtiapine 25 MG TABLET. PO SCH ×3 (09:17→17:20)
[2020-09-05] MEDS: INSULIN GLARGINE SYRINGE. SQ SCH ×2 (09:19→20:31)
[2020-09-05] MEDS: INSULIN LISPRO 300 UNITS/3 ML VIAL. SQ SCH ×3 (09:23→17:57)
--- NOTE | 2020-09-05 12:44 | NUR ---
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 Special Instructions/Notes: Upon admission to [facility], schedule follow up appointments with facility house physician and psychiatrist within 7-10 days. DISCHARGE TO FACILITY Facility: [facility] E-fax: Address: [address] [place] [address] Contact Name: Negrita Grace, abebe Contact Name: NILE Tanner PCP: Dr. Faye [phone], (fax) Psychiatrist: Facility provider
--- NOTE | 2020-09-05 13:15 | NUR ---
Call three placed to Dakota Moralez, legal guardian. Left detailed voice message with progress report and plan for Jake to d/c to [facility] memory care on 09/07/2020. Requested return phone call from Dakota should he have questions or concerns.
--- NOTE | 2020-09-05 13:34 | NUR ---
Patient alert and sitting in lounge chair. Patient showered today and is smiling with no complaints. Conversation still remains about when he will go home, however today he did talk about riding his motor cycle and different places he liked to go and was happier than in the past. He was not so focused on just going home. No complaints of pain and no further concerns at this time.
[2020-09-05 15:46] VITALS: BP 130/70
[2020-09-05] MEDS: MELATONIN 3 MG TABLET PO SCH (20:29)
[2020-09-05] MEDS: MIRTAZAPINE 15 MG TABLET PO SCH (20:29)
[2020-09-05] MEDS: traZODone 50 MG TABLET. PO PRN (20:29)
[2020-09-05] MEDS: ATORVASTATIN CALCIUM 10 MG TABLET. PO SCH (20:29)
--- NOTE | 2020-09-05 22:04 | PDOC ---
Exam Note: Mason Note: Please also refer to the separate dictated note~for this date of service dictated separately.~Patient seen individually. Discussed the patient with Nursing staff reviewed the chart.~Reviewed interim history and current functioning. Reviewed vital signs,~Labs/ Radiology~and current medications noted below. Continue current treatment with the changes noted in the dictated addendum note Assessment: Vital Signs/I&O: Vital Signs Date Time Temp Pulse Resp B/P (MAP) Pulse Ox O2 Delivery O2 Flow Rate FiO2 09/05/20 17:20 71 130/70 09/05/20 15:46 98.4 19 94 Room Air I & O 09/04/20 09/04/20 09/05/20 15:00 23:00 07:00 Intake Total 960 ml 720 ml Balance 960 ml 720 ml Labs: Laboratory Tests Test 09/05/20 07:32 09/05/20 12:14 09/05/20 16:35 09/05/20 18:55 Glucose (Fingerstick) 158 mg/dL (70-99) H 148 mg/dL (70-99) H 240 mg/dL (70-99) H 289 mg/dL (70-99) H Current Medications: I have reviewed the current psychotropics carefully including drug interactions. Risk benefit ratio favors no change other than as noted in my dictated progress note. Diagnosis: Problems: (1) Impulse control disorder, unspecified (2) Anxiety disorder, unspecified (3) Dementia, vascular, with depression (4) Dementia, vascular, with delusions (5) Major neurocognitive disorder, due to vascular disease, with behavioral disturbance, mild (6) Dementia in Alzheimer's disease with depression (7) Dementia in Alzheimer's disease with delusions NURIA BARRETT MD Sep 05, 2020 22:04
--- NOTE | 2020-09-05 22:34 | NUR ---
Nursing Note: Pt sitting quietly on the side of his bed at shift change. Pt calm, pleasant,and interactive with staff. Pt cooperative and compliant with assessment and medications administered whole. Pt looking forward to discharging soon.
[2020-09-06] MEDS ORDERED: DIVA125C2 PO (02:46)
[2020-09-06] MEDS ORDERED: MELA3TAB4 PO (02:47)
[2020-09-06] MEDS ORDERED: METH57CR17 TP (02:47)
[2020-09-06] MEDS ORDERED: QUET25TA5 PO (02:48)
[2020-09-06] MEDS ORDERED: MIRT15TA3 PO (02:48)
[2020-09-06 05:24] VITALS: BP 144/75
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
[2020-09-06] MEDS: GABAPENTIN 300 MG CAPSULE. PO SCH ×3 (07:57→20:35)
[2020-09-06] MEDS: CYANOCOBALAMIN (VITAMIN B-12) 1,000 MCG TABLET. PO SCH (07:57)
[2020-09-06] MEDS: SERTRALINE 25 MG TABLET. PO SCH (07:57)
[2020-09-06] MEDS: QUEtiapine 25 MG TABLET. PO SCH ×3 (07:57→16:58)
[2020-09-06] MEDS: LOSARTAN 50 MG TABLET. PO SCH (07:58)
[2020-09-06] MEDS: CARVEDILOL 6.25 MG TABLET PO SCH ×2 (07:58→16:57)
[2020-09-06] MEDS: DIVALPROEX 125 MG CAP.SPRINK PO SCH ×2 (07:58→16:57)
[2020-09-06] MEDS: FUROSEMIDE 40 MG TABLET PO SCH ×2 (07:59→12:15)
[2020-09-06] MEDS: PANTOPRAZOLE 40 MG TABLET. PO SCH (07:59)
[2020-09-06] MEDS: ASPIRIN CHEWABLE 81 MG TABLET. PO SCH (07:59)
--- NOTE | 2020-09-06 08:04 | PDOC ---
Exam Note: Mason Note: This note is a late entry for 09/05/2020 covers elements not covered in my initial note. Subjective: The patient was reviewed on telehealth rounds in the evening of 09/05/2020 with Ysabel DO. Discussed with nursing staff, reviewed the chart. The patient slept 5-1/2 hours previous night. He was confused previous night but less confused during the day today. He is still obsessing about discharge plans and I addressed with him. Review of Systems: No CV, , pulmonary, eye system symptoms on review. Mental Status Exam: Oriented to himself and situation. He was able to tell me that the current President was President Miki and the year was 2019. Insight, judgment and recent memory is impaired. Remote is better. Language function is intact. Attention span is short. Mood and affect remains labile. Laboratory Data: Reviewed. Impression: Major neurocognitive disorder Alzheimer, vascular with delusion, depression, behavioral disturbance. Anxiety disorder unspecified. Impulse control disorder unspecified. Plan: No change from initial note. Assessment: Vital Signs/I&O: Vital Signs Date Time Temp Pulse Resp B/P (MAP) Pulse Ox O2 Delivery O2 Flow Rate FiO2 09/06/20 05:24 97.5 63 18 144/75 (98) 94 Room Air I & O 09/05/20 09/05/20 09/06/20 15:00 23:00 07:00 Intake Total 950 ml 550 ml 360 ml Balance 950 ml 550 ml 360 ml Labs: Laboratory Tests Test 09/05/20 12:14 09/05/20 16:35 09/05/20 18:55 09/06/20 07:25 Glucose (Fingerstick) 148 mg/dL (70-99) H 240 mg/dL (70-99) H 289 mg/dL (70-99) H 192 mg/dL (70-99) H Current Medications: I have reviewed the current psychotropics carefully including drug interactions. Risk benefit ratio favors no change other than as noted in my dictated progress note. Diagnosis: Problems: (1) Impulse control disorder, unspecified (2) Anxiety disorder, unspecified (3) Dementia, vascular, with depression (4) Dementia, vascular, with delusions (5) Major neurocognitive disorder, due to vascular disease, with behavioral disturbance, mild (6) Dementia in Alzheimer's disease with depression (7) Dementia in Alzheimer's disease with delusions NURIA BARRETT MD Sep 06, 2020 08:04
[2020-09-06] MEDS: INSULIN LISPRO 300 UNITS/3 ML VIAL. SQ SCH ×3 (08:07→17:02)
--- NOTE | 2020-09-06 09:04 | NUR ---
NILE faxed negative Covid swab result from 09/04/20 to Negrita at [facility] in preparation for d/c on 09/07/20.
[2020-09-06] MEDS: INSULIN GLARGINE SYRINGE. SQ SCH ×2 (10:03→20:40)
--- NOTE | 2020-09-06 11:18 | NUR ---
Patient alert and oriented with no complaints or concerns. Patient is anxious to "get out of here". I told him it should be in the next couple of days. He asked what time so he could call [facility] to pick him up and then also stated he didn't think he was going home. He is still somewhat confused or just doesn't remember everything that has been told to him. He is planned to be discharged on 09/07/2020 to [facility] at 11:00am. Patient is calm and cooperative otherwise and has no further concerns or complaints.
--- NOTE | 2020-09-06 15:24 | NUR ---
NILE met with Jake to review upcoming discharge plans for 09/07/20. Informed Jake that he has been accepted at [facility] and that they will pick him up around 11am on 09/07/20. While Jake expressed being glad to be released from the hospital, he asked how long he will stay at [facility] before he can be "out on the streets again." NILE reminded Jake that he had a legal guardian, Dakota Moralez, that was helping with decision making and care arrangements and that Jake would have to discuss future arrangements with Dakota. NILE called Daktoa Moralez to confirm he had received previous two message this worker had left for him. Dakota indeed had received the messages and apologized for not getting back with NILE. Dakota is in agreement with d/c plan to [facility] on 09/07/20 and is aware that [facility] will be in contact with him to complete admission paperwork.
[2020-09-06 15:47] VITALS: BP 132/62
[2020-09-06] MEDS: MELATONIN 3 MG TABLET PO SCH (20:35)
[2020-09-06] MEDS: MIRTAZAPINE 15 MG TABLET PO SCH (20:35)
[2020-09-06] MEDS: ATORVASTATIN CALCIUM 10 MG TABLET. PO SCH (20:35)
--- NOTE | 2020-09-06 21:56 | PDOC ---
Exam Note: Mason Note: Please also refer to the separate dictated note~for this date of service dictated separately.~Patient seen individually. Discussed the patient with Nursing staff reviewed the chart.~Reviewed interim history and current functioning. Reviewed vital signs,~Labs/ Radiology~and current medications noted below. Continue current treatment with the changes noted in the dictated addendum note Assessment: Vital Signs/I&O: Vital Signs Date Time Temp Pulse Resp B/P (MAP) Pulse Ox O2 Delivery O2 Flow Rate FiO2 09/06/20 16:57 73 132/62 09/06/20 15:47 97.6 16 93 Room Air I & O 09/05/20 09/05/20 09/06/20 15:00 23:00 07:00 Intake Total 950 ml 550 ml 360 ml Balance 950 ml 550 ml 360 ml Labs: Laboratory Tests Test 09/06/20 07:25 09/06/20 12:01 09/06/20 16:53 09/06/20 19:13 Glucose (Fingerstick) 192 mg/dL (70-99) H 237 mg/dL (70-99) H 253 mg/dL (70-99) H 239 mg/dL (70-99) H Current Medications: I have reviewed the current psychotropics carefully including drug interactions. Risk benefit ratio favors no change other than as noted in my dictated progress note. Diagnosis: Problems: (1) Impulse control disorder, unspecified (2) Anxiety disorder, unspecified (3) Dementia, vascular, with depression (4) Dementia, vascular, with delusions (5) Major neurocognitive disorder, due to vascular disease, with behavioral disturbance, mild (6) Dementia in Alzheimer's disease with depression (7) Dementia in Alzheimer's disease with delusions NURIA BARRETT MD Sep 06, 2020 21:56
--- NOTE | 2020-09-07 01:25 | NUR ---
Last evening pt sat quietly in his room reading a magazine. He took HS meds whole without difficulty and asked some questions regarding his discharge tomorrow and the facility he is going to. He has had no behaviors tonight.
[2020-09-07 06:16] VITALS: BP 193/81
[2020-09-07] MEDS: DIVALPROEX 125 MG CAP.SPRINK PO SCH (08:13)
[2020-09-07] MEDS: LOSARTAN 50 MG TABLET. PO SCH (08:13)
[2020-09-07 08:14] VITALS: BP 193/81
[2020-09-07] MEDS: CARVEDILOL 6.25 MG TABLET PO SCH (08:14)
[2020-09-07] MEDS: PANTOPRAZOLE 40 MG TABLET. PO SCH (08:14)
[2020-09-07] MEDS: CYANOCOBALAMIN (VITAMIN B-12) 1,000 MCG TABLET. PO SCH (08:14)
[2020-09-07] MEDS: ASPIRIN CHEWABLE 81 MG TABLET. PO SCH (08:14)
[2020-09-07] MEDS: FUROSEMIDE 40 MG TABLET PO SCH (08:14)
[2020-09-07] MEDS: GABAPENTIN 300 MG CAPSULE. PO SCH (08:14)
[2020-09-07] MEDS: QUEtiapine 25 MG TABLET. PO SCH (08:14)
[2020-09-07] MEDS: SERTRALINE 25 MG TABLET. PO SCH (08:14)
[2020-09-07] MEDS: INSULIN LISPRO 300 UNITS/3 ML VIAL. SQ SCH (08:15)
[2020-09-07] MEDS: INSULIN GLARGINE SYRINGE. SQ SCH (09:00)
--- NOTE | 2020-09-07 11:08 | NUR ---
Transition Record was faxed to follow-up provider with the following elements: Reason for admission, procedures, tests, principal diagnosis, pending studies, patient instructions, 08/06 contact information for unit, phone number to obtain pending test results, plan for follow-up care, physician follow-up, advanced directive information, and medication list with dose, duration and instructions. This information was included in the following documents: History and physical, lab results, study results, progress notes, social work planning form, DC instruction form, patient visit summary, and medication reconciliation form. Date & time record faxed:09/06/20 Record faxed to: [place], [place] Record discussed with/ report given to: charge nurse at [facility]
--- NOTE | 2020-09-07 22:02 | PDOC ---
Exam Note: Mason Note: Please also refer to the separate dictated note~for this date of service dictated separately.~Patient seen individually. Discussed the patient with Nursing staff reviewed the chart.~Reviewed interim history and current functioning. Reviewed vital signs,~Labs/ Radiology~and current medications noted below. Continue current treatment with the changes noted in the dictated addendum note Assessment: Vital Signs/I&O: Vital Signs Date Time Temp Pulse Resp B/P (MAP) Pulse Ox O2 Delivery O2 Flow Rate FiO2 09/07/20 08:14 62 193/81 09/07/20 06:16 98.0 18 96 09/06/20 15:47 Room Air I & O 09/06/20 09/06/20 09/07/20 15:00 23:00 07:00 Intake Total 720 ml 480 ml Balance 720 ml 480 ml Labs: Laboratory Tests Test 09/07/20 07:52 Glucose (Fingerstick) 135 mg/dL (70-99) H Current Medications: I have reviewed the current psychotropics carefully including drug interactions. Risk benefit ratio favors no change other than as noted in my dictated progress note. Diagnosis: Problems: (1) Impulse control disorder, unspecified (2) Anxiety disorder, unspecified (3) Dementia, vascular, with depression (4) Dementia, vascular, with delusions (5) Major neurocognitive disorder, due to vascular disease, with behavioral disturbance, mild (6) Dementia in Alzheimer's disease with depression (7) Dementia in Alzheimer's disease with delusions NURIA BARRETT MD Sep 07, 2020 22:02
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
--- NOTE | 2020-09-08 07:28 | PDOC ---
Exam Note: Mason Note: This note is a late entry for 09/06/2020 covers elements not covered in my initial note. Subjective: The patient was seen face to face in the morning of 09/06/2020 with Ysabel DO. Discussed with nursing staff, reviewed the chart. Overall the patient has been less volatile, less aggressive, still somewhat obsessive about discharge plans and I addressed this with him. Review of Systems: No CV, , pulmonary, eye system symptoms on review. Mental Status Exam: Oriented to himself and situation. Insight, judgment and recent memory is impaired. Remote is better. Language function is intact. Attention span is short. Mood and affect remains labile. Laboratory Data: Reviewed. Impression: Major neurocognitive disorder Alzheimer, vascular with delusion, depression, behavioral disturbance. Anxiety disorder unspecified. Impulse control disorder unspecified. Plan: No change from initial note. T[facility]. Assessment: Vital Signs/I&O: Vital Signs Date Time Temp Pulse Resp B/P (MAP) Pulse Ox O2 Delivery O2 Flow Rate FiO2 09/07/20 08:14 62 193/81 09/07/20 06:16 98.0 18 96 09/06/20 15:47 Room Air I & O 09/07/20 09/07/20 09/08/20 15:00 23:00 07:00 Intake Total 525 ml Balance 525 ml Labs: Laboratory Tests Test 09/07/20 07:52 Glucose (Fingerstick) 135 mg/dL (70-99) H Current Medications: I have reviewed the current psychotropics carefully including drug interactions. Risk benefit ratio favors no change other than as noted in my dictated progress note. Diagnosis: Problems: (1) Impulse control disorder, unspecified (2) Anxiety disorder, unspecified (3) Dementia, vascular, with depression (4) Dementia, vascular, with delusions (5) Major neurocognitive disorder, due to vascular disease, with behavioral disturbance, mild (6) Dementia in Alzheimer's disease with depression (7) Dementia in Alzheimer's disease with delusions NURIA BARRETT MD Sep 08, 2020 07:28
== END 2020-09-07 11:05 | disposition short-term general hospital (02) | DRG 57 ==
LOC: GEROPSY 10:33
PROVIDERS: ADMIT Psychiatry & Neurology Psychiatry; ATTEND Psychiatry & Neurology Psychiatry
DX: G30.9 Alzheimer's disease, unspecified (principal); F02.81 Dementia in other diseases classified elsewhere, unspecified severity, with behavioral disturbance; F01.51 Vascular dementia, unspecified severity, with behavioral disturbance; Z20.828 Contact with and (suspected) exposure to other viral communicable diseases; Z79.899 Other long term (current) drug therapy; F63.9 Impulse disorder, unspecified; F41.9 Anxiety disorder, unspecified; F32.9 Major depressive disorder, single episode, unspecified
CPT/HCPCS: 36415; 80048; 80053; 80164; 82947; 85025; 85379; 86592; 93005; J1815; U0003